=== PATIENT | female | born 1990 | race Caucasian/White ===

== ENCOUNTER 2017-02-15 06:10 | Outpatient (CLI) | payer OTHER | END 2017-02-15 06:11 | disposition critical access hospital (66) | LOC: EMS 06:10 | PROVIDERS: ATTEND Surgery | DX: O99.89 Other specified diseases and conditions complicating pregnancy, childbirth and the puerperium (principal); R56.9 Unspecified convulsions; R11.2 Nausea with vomiting, unspecified; R53.83 Other fatigue; R51 Headache | CPT/HCPCS: A0425; A0429 ==

== ENCOUNTER 2017-02-15 06:50 | Inpatient (IN) | payer OTHER ==
[2017-02-15] MEDS: MAGNESIUM SULFATE 2 GRAM 50 ML IV SCH ×2 (06:50→06:54)
[2017-02-15] MEDS ORDERED: ONDANSETRON 4 MG/2 ML VIAL IVP PRN (07:08)
[2017-02-15] MEDS ORDERED: SODIUM CHLORIDE FLUSH 0.9% 10 ML SYRINGE IVP PRN ×2 (07:08→11:26)
[2017-02-15] MEDS ORDERED: MAGNESIUM SULFATE 2 GRAM 50 ML IV ONE ×2 (07:14→08:30)
[2017-02-15] MEDS ORDERED: LABETALOL 5 MG/1 ML 20 ML MDV ONE (07:21)
[2017-02-15 07:26] LABS: BASOPHILS % (AUTO) 0.3 %; HCT - HEMATOCRIT 43.1 % (37.0-47.0); HGB - HEMOGLOBIN 14.6 g/dL (12.0-16.0); LYMPHOCYTES % (AUTO) 4.2 %; MEAN CORPUSCULAR VOLUME 88.4 fL (81.0-99.0); MEAN PLATELET VOLUME 8.5 fL (7.9-10.8); MONOCYTES % (AUTO) 2.3 %; NEUTROPHILS % (AUTO) 93.2 %; RED BLOOD COUNT 4.87 10^6/uL (4.20-5.40); RED CELL DISTRIBUTION WIDTH 14.5 % (12.0-15.0)
[2017-02-15 07:36] LABS: URIC ACID 10.5 mg/dL (2.6-7.2)
[2017-02-15 07:51] LABS: BAND NEUTROPHILS % (MANUAL) 2 %; LYMPHOCYTES % (MANUAL) 4 %; NEUTROPHILS % (MANUAL) 91 %; NP AUTO DIFFERENTIAL? YES; NP MAN DIFFERENTIAL? NO; PLATELET ESTIMATE, MANUAL NORMAL (130-450,000) (NORMAL); PLATELET MORPHOLOGY 1+ LARGE PLATELETS (NORMAL); TOTAL CELLS COUNTED 100
[2017-02-15] MEDS ORDERED: LACTATED RINGERS 1,000 ML IV SCH (08:00)
[2017-02-15] MEDS: LABETALOL 5 MG/1 ML 20 ML MDV IVP PRN ×2 (08:16→08:50)
[2017-02-15] MEDS ORDERED: MAGNESIUM SULFATE 40 GM in LACTATED RINGERS 420 ML IV SCH (09:00)
[2017-02-15] MEDS ORDERED: ceFAZolin 3 GM in SODIUM CHLORIDE 0.9% 100ML 100 ML IV ONE (09:17)
[2017-02-15] MEDS ORDERED: CITRIC ACID/SODIUM CITRATE 15 ML UDC PO ONE (09:29)
[2017-02-15] MEDS ORDERED: SODIUM CHLORIDE 0.9% 1,000 ML IV ONE (09:36)
--- NOTE | 2017-02-15 09:47 | HISTORY & PHYSICAL EXAMINATION ---
DATE OF ADMISSION: 02/15/2017 DIAGNOSES 1. 36 week 4 day gestation. 2. Status post eclamptic seizure. HISTORY: The patient is a 26-year-old primigravida at 36 weeks 4 days gestation, who in the midst of her seizure awoke her early this morning (approximately 5:30, 6:00 a.m.). Mr. Ashby describes whole body shaking , her eyes were rolled back into her head and postictal confused mental state, but she did not lose consciousness or urine. She was brought to the hospital by [facility]. She reports a week of chronic frontal headaches without visual changes. She also reports 24 hours of nausea and is retching, nonbilious, nonbloody fluid. She has had swelling of the hands and feet for over 6 weeks. She has no pre- history of hypertension and her baseline blood pressure on 27 August was 123/81. Her last office visit blood pressure on 21 January was 123/83. Patient states she still has headache and persistent nausea. She cannot recall her last meal or fluid intake and is actively vomiting during the interview. She reports no right upper quadrant tenderness. She reports no neurologic disease or prior seizure. LMP is 14 May, yielding an EDC of 18 February. On 01/24 ultrasound was consistent with 11 weeks 6 days fixing EDC at . HISTORY: Essentially unremarkable. Reviewed [facility] records. The patient's labs: Blood type A positive. Antibody screen negative. Rubella immune. RPR nonreactive. HIV negative. Hepatitis B surface antigen negative. Urine culture negative. Varicella titer positive. Glucola screen normal 94. GBS status unknown. anomaly scan on October 23 is normal anatomy. PAST MEDICAL HISTORY: Essentially healthy. No hospitalizations or chronic disease. PAST SURGICAL HISTORY: None. FAMILY HISTORY: Hypertension, heart disease, breast cancer. SOCIAL HISTORY: , [employer] dependent; no drug, tobacco, or alcohol use. REVIEW OF SYSTEMS CONSTITUTIONAL: Negative. HEENT: Negative. LUNGS: Negative. CARDIAC: Negative. BREASTS: Negative. GASTROINTESTINAL: No right upper quadrant tenderness. No digestive disease issues, reference HPI. NEUROLOGIC: Negative. No migrainous headaches. No MS. No sensory motor disturbance. MUSCULOSKELETAL: Hand and lower extremity edema. SKIN: Negative. PSYCHOLOGIC: Some anxiety triggered by emotion from seizure, but fairly calm. PHYSICAL EXAMINATION GENERAL: Patient lying comfortably in bed in a darkened room. She is alert enough to respond, but slightly groggy. present and helps augment answers. VITAL SIGNS: Temperature 97.5, respiration 22, pulse 81, blood pressure 164/119 , oxygen saturation 100% on 5 liters flow. HEENT: No cephalic trauma. No nasal discharge. Detailed inspection of oral cavity finds no bite petty of the tongue. Moist membranes. No thyromegaly. Dentition in good repair. LUNGS: Clear to auscultation. CARDIAC: Regular. No murmur. No gallop. BREASTS: Deferred. ABDOMEN: Gravid. No hepatosplenomegaly. No right upper quadrant tenderness. UTERUS: Fetus in vertex presentation, 6-1/2 pound fetus estimated. heart tracing initially category 2 with fair variability. No decelerations. Occasional accelerations. Baseline 135. No contractions evident. EXTERNAL GENITALIA: No lesions. VAGINA: No blood or discharge. CERVIX: 1 cm, 60% effaced, -2 station. NEUROLOGIC: EOMI. Cranial nerves 2-12 grossly intact. Detailed body check, sensorium intact all 4 limbs, face; diffusely weak on hand squeeze and muscle challenges, probably secondary to loading dose magnesium. Reflexes 2+. One bead of clonus each foot. MUSCULOSKELETAL: Bruises on both knees and inner portion of thigh, probably seizure trauma. Marked edema, tibial edema in both legs extending up 6 cm, finger edema, and facial edema. SKIN: No breaks in skin evident. No rashes. LABS: White count 21, hemoglobin 14.6, platelets 266. Uric acid 10.5. AST 52. Urinalysis and creatine protein ratio pending. Urine toxicology screen pending. Magnesium loading dose level check pending. ASSESSMENT: The patient has had evident eclamptic seizure at home and has been taken to the hospital via [facility]. She is found to have the clinical stigmata of preeclampsia including significant hypertension. There is no prior history of neurologic disease to explain the siezure event. Currently patient is stabilized and now has finished loading dose with magnesium sulfate. No significant seizure injury found. Patient will require labetalol for blood pressure control and well being assurance through external monitoring. Thus far, the strip is normalized after initial category 2. The patient will require delivery in the near future. Cervix is not readily inducible with low Mcdaniel score. PLAN 1. Continue supportive care and magnesium sulfate drip at 2 grams an hour. 2. Insert Augustin. 3. Prepare for delivery. Discussed case with air quality engineer veterinary receptionist, Dr. Cain Sweeney. He feels comfortable in keeping the patient here for delivery. 4. Discussed clinical situation with patient and her . Talked about the relative advantages and disadvantages of modes of delivery -- Vaginal vs C Section. We discussed transfer option as well. They are taking matter of mode of delivery and transfer under consideration. Patient is an appropriate candidate for induction and delivery at [facility]. Discussed case w Dr Miller and cholo segovia w [facility] care. 08:9:00 JOB #: [id number] EXT JOB #:[id number] ANAID
[2017-02-15 09:55] LABS: BILIRUBIN,URINE NEGATIVE (NEGATIVE)
[2017-02-15 09:59] LABS: UA w/ MICROSCOPIC CHARGE YES
[2017-02-15 10:04] LABS: UR CULTURE IF IND INDICATED; WBC,URINE 0-3 /HPF (0-5)
[2017-02-15] MEDS ORDERED: LACTATED RINGERS 1,000 ML IV ONE (10:18)
[2017-02-15] MEDS ORDERED: OXYTOCIN/LACTATED RINGERS 250 ML IV ONE (11:26)
[2017-02-15] MEDS ORDERED: oxyCOD/ACETAMIN 5 MG/325 MG TABLET PO PRN (11:26)
[2017-02-15] MEDS ORDERED: ZOLPIDEM 5 MG TABLET PO PRN (11:26)
[2017-02-15] MEDS ORDERED: diphenhydrAMINE 25 MG CAPSULE PO PRN (11:26)
[2017-02-15] MEDS ORDERED: SODIUM CHLORIDE FLUSH 0.9% 10 ML SYRINGE IVP SCH (14:00)
--- NOTE | 2017-02-15 17:12 | PROVIDER PROGRESS NOTE ---
Subjective - General Admit Date: 02/15/17 Procedure Date: 02/15/17 Post Op Days: 0 Procedure Performed: C/S - Review of Systems Wound/Incisions: positive: Healing well, Dressing dry and intact Drain Type: Augustin Drain Output Description: Initial 20 or less no to 60cc per hr General: positive: Fatigue HEENT: positive: No symptoms, Other (Facial Edema) Pulmonary: positive: No symptoms Cardiovascular: positive: No symptoms Gastrointestinal: positive: No symptoms Objective - Patient Data Vital Signs: Vital Signs x48h Temp Pulse Resp BP Pulse Ox 02/15/17 16:00 98.4 F 84 15 118/76 96 02/15/17 15:00 80 14 119/73 92 02/15/17 14:00 98.1 F 74 14 111/79 95 02/15/17 12:56 98.2 F 95 15 105/67 96 02/15/17 12:26 80 15 112/70 98 02/15/17 11:56 97.9 F 68 15 108/64 98 02/15/17 11:44 96 02/15/17 11:32 96 02/15/17 11:25 97 02/15/17 11:20 97 02/15/17 11:15 96 02/15/17 11:10 99 02/15/17 11:06 100 Weight: Weight 02/13/17 02/14/17 02/15/17 23:59 23:59 23:59 Weight (kg) 102.512 kg Intake & Output: Intake and Output Totals x24h 02/13/17 02/14/17 02/15/17 23:59 23:59 23:59 Intake Total 375 Output Total 415 Balance -40 - Lab Results Lab Results: 02/15/17 07:07 Other Lab Results: Lab Results x24hrs 02/15/17 02/15/17 02/15/17 Range/Units 08:50 08:50 08:50 WBC (4.8-10.8) x10^3/uL RBC (4.20-5.40) 10^6/uL Hgb (12.0-16.0) g/dL Hct (37.0-47.0) % MCV (81.0-99.0) fL MCH (27.0-31.0) pg MCHC (32.0-36.0) g/dL RDW (12.0-15.0) % Plt Count (130-450) 10^3/uL MPV (7.9-10.8) fL Neut # Lymph # Stanton # Eos # Baso # Absolute Nucleated RBC Total Counted Band Neuts % (Manual) (0 - 10) % Metamyelocytes % ( - 0) % Neutrophils # (Manual) (1.5-6.6) 10^3/uL Lymphocytes # (Manual) (1.5-3.5) 10^3/uL Monocytes # (Manual) (0.0-1.0) 10^3/uL Nucleated RBCs Differential Comment Platelet Estimate (NORMAL) Platelet Morphology (NORMAL) RBC Morph Micro Appear (NORMAL) Fibrinogen (220-496) mg/dL Uric Acid (2.6-7.2) mg/dL Magnesium (1.7-2.8) mg/dL AST (10-42) IU/L Lactate Dehydrogenase (91-225) IU/L Urine Color YELLOW Urine Clarity HAZY (CLEAR) Urine pH 6.0 (5.0-7.5) PH Ur Specific [place] >=1.030 H (1.002-1.030) Urine Protein >=300 H (NEGATIVE) mg/dL Urine Glucose (UA) NEGATIVE (NEGATIVE) mg/dL Urine Ketones NEGATIVE (NEGATIVE) mg/dL Urine Occult Blood LARGE H (NEGATIVE) Urine Nitrite NEGATIVE (NEGATIVE) Urine Bilirubin NEGATIVE (NEGATIVE) Urine Urobilinogen 0.2 (NORMAL) (NORMAL) E.U./dL Ur Leukocyte Esterase NEGATIVE (NEGATIVE) Urine RBC 6-10 H (0-5) /HPF Urine WBC 0-3 (0-5) /HPF Ur Squamous Epith Cells RARE Squamous (<= Few) Amorphous Sediment Few /LPF Urine Bacteria Moderate H (None Seen) /HPF Urine Casts 0-2 Course Granular /LPF Ur Microscopic Review INDICATED Urine Culture Comments INDICATED Urine Creatinine 252.4 mg/dL Ur Total Protein Timed > 2100 mg/dL Protein/Creatinin Ratio 8.3 H (<=0.2) Urine Opiates Screen NEGATIVE (NEGATIVE) Ur Oxycodone Screen NEGATIVE (NEGATIVE) Urine Methadone Screen NEGATIVE (NEGATIVE) Ur Propoxyphene Screen NEGATIVE (NEGATIVE) Ur Barbiturates Screen NEGATIVE (NEGATIVE) Ur Tricyclics Screen NEGATIVE (NEGATIVE) Ur Phencyclidine Scrn NEGATIVE (NEGATIVE) Ur Amphetamine Screen NEGATIVE (NEGATIVE) U Methamphetamines Scrn NEGATIVE (NEGATIVE) U Benzodiazepines Scrn NEGATIVE (NEGATIVE) Urine Cocaine Screen NEGATIVE (NEGATIVE) U Cannabinoids Screen NEGATIVE (NEGATIVE) Blood Type Antibody Screen 02/15/17 02/15/17 02/15/17 Range/Units 07:07 07:07 07:07 WBC (4.8-10.8) x10^3/uL RBC (4.20-5.40) 10^6/uL Hgb (12.0-16.0) g/dL Hct (37.0-47.0) % MCV (81.0-99.0) fL MCH (27.0-31.0) pg MCHC (32.0-36.0) g/dL RDW (12.0-15.0) % Plt Count (130-450) 10^3/uL MPV (7.9-10.8) fL Neut # Lymph # Stanton # Eos # Baso # Absolute Nucleated RBC Total Counted Band Neuts % (Manual) (0 - 10) % Metamyelocytes % ( - 0) % Neutrophils # (Manual) (1.5-6.6) 10^3/uL Lymphocytes # (Manual) (1.5-3.5) 10^3/uL Monocytes # (Manual) (0.0-1.0) 10^3/uL Nucleated RBCs Differential Comment Platelet Estimate (NORMAL) Platelet Morphology (NORMAL) RBC Morph Micro Appear (NORMAL) Fibrinogen (220-496) mg/dL Uric Acid (2.6-7.2) mg/dL Magnesium 4.4 H (1.7-2.8) mg/dL AST (10-42) IU/L Lactate Dehydrogenase 328 H (91-225) IU/L Urine Color Urine Clarity (CLEAR) Urine pH (5.0-7.5) PH Ur Specific [place] (1.002-1.030) Urine Protein (NEGATIVE) mg/dL Urine Glucose (UA) (NEGATIVE) mg/dL Urine Ketones (NEGATIVE) mg/dL Urine Occult Blood (NEGATIVE) Urine Nitrite (NEGATIVE) Urine Bilirubin (NEGATIVE) Urine Urobilinogen (NORMAL) E.U./dL Ur Leukocyte Esterase (NEGATIVE) Urine RBC (0-5) /HPF Urine WBC (0-5) /HPF Ur Squamous Epith Cells (<= Few) Amorphous Sediment /LPF Urine Bacteria (None Seen) /HPF Urine Casts /LPF Ur Microscopic Review Urine Culture Comments Urine Creatinine mg/dL Ur Total Protein Timed mg/dL Protein/Creatinin Ratio (<=0.2) Urine Opiates Screen (NEGATIVE) Ur Oxycodone Screen (NEGATIVE) Urine Methadone Screen (NEGATIVE) Ur Propoxyphene Screen (NEGATIVE) Ur Barbiturates Screen (NEGATIVE) Ur Tricyclics Screen (NEGATIVE) Ur Phencyclidine Scrn (NEGATIVE) Ur Amphetamine Screen (NEGATIVE) U Methamphetamines Scrn (NEGATIVE) U Benzodiazepines Scrn (NEGATIVE) Urine Cocaine Screen (NEGATIVE) U Cannabinoids Screen (NEGATIVE) Blood Type A POSITIVE Antibody Screen NEGATIVE 02/15/17 02/15/17 02/15/17 Range/Units 07:07 07:07 07:07 WBC 21.0 H (4.8-10.8) x10^3/uL RBC 4.87 (4.20-5.40) 10^6/uL Hgb 14.6 (12.0-16.0) g/dL Hct 43.1 (37.0-47.0) % MCV 88.4 (81.0-99.0) fL MCH 30.0 (27.0-31.0) pg MCHC 34.0 (32.0-36.0) g/dL RDW 14.5 (12.0-15.0) % Plt Count 266 (130-450) 10^3/uL MPV 8.5 (7.9-10.8) fL Neut # Not Reportable Lymph # Not Reportable Stanton # Not Reportable Eos # Not Reportable Baso # Not Reportable Absolute Nucleated RBC Not Reportable Total Counted 100 Band Neuts % (Manual) 2 (0 - 10) % Metamyelocytes % 1 H ( - 0) % Neutrophils # (Manual) 19.5 H (1.5-6.6) 10^3/uL Lymphocytes # (Manual) 0.8 L (1.5-3.5) 10^3/uL Monocytes # (Manual) 0.4 (0.0-1.0) 10^3/uL Nucleated RBCs Not Reportable Differential Comment MANUAL DIFFERENTIAL Platelet Estimate NORMAL (130-450,000) (NORMAL) Platelet Morphology 1+ LARGE PLATELETS (NORMAL) RBC Morph Micro Appear NORMAL APPEARANCE (NORMAL) Fibrinogen 556 H (220-496) mg/dL Uric Acid 10.5 H (2.6-7.2) mg/dL Magnesium (1.7-2.8) mg/dL AST 52 H (10-42) IU/L Lactate Dehydrogenase (91-225) IU/L Urine Color Urine Clarity (CLEAR) Urine pH (5.0-7.5) PH Ur Specific [place] (1.002-1.030) Urine Protein (NEGATIVE) mg/dL Urine Glucose (UA) (NEGATIVE) mg/dL Urine Ketones (NEGATIVE) mg/dL Urine Occult Blood (NEGATIVE) Urine Nitrite (NEGATIVE) Urine Bilirubin (NEGATIVE) Urine Urobilinogen (NORMAL) E.U./dL Ur Leukocyte Esterase (NEGATIVE) Urine RBC (0-5) /HPF Urine WBC (0-5) /HPF Ur Squamous Epith Cells (<= Few) Amorphous Sediment /LPF Urine Bacteria (None Seen) /HPF Urine Casts /LPF Ur Microscopic Review Urine Culture Comments Urine Creatinine mg/dL Ur Total Protein Timed mg/dL Protein/Creatinin Ratio (<=0.2) Urine Opiates Screen (NEGATIVE) Ur Oxycodone Screen (NEGATIVE) Urine Methadone Screen (NEGATIVE) Ur Propoxyphene Screen (NEGATIVE) Ur Barbiturates Screen (NEGATIVE) Ur Tricyclics Screen (NEGATIVE) Ur Phencyclidine Scrn (NEGATIVE) Ur Amphetamine Screen (NEGATIVE) U Methamphetamines Scrn (NEGATIVE) U Benzodiazepines Scrn (NEGATIVE) Urine Cocaine Screen (NEGATIVE) U Cannabinoids Screen (NEGATIVE) Blood Type Antibody Screen - Current Medications Current Medications: Current Medications Generic Name Dose Route Start Last Admin Trade Name Barryq PRN Reason Stop Dose Admin Magnesium Sulfate 40 gm/ 500 mls @ 25 mls/hr 02/15/17 09:00 02/15/17 08:30 Lactated Ringer's IV 25 mls/hr .Q20H LARRY Administration 2 GM/HR Labetalol HCl 10 mg 02/15/17 07:08 02/15/17 08:50 Trandate Inj IVP 10 mg Q10M PRN Administration SBP >160 or DBP >110
[2017-02-15] MEDS: LACTATED RINGERS 1,000 ML IV SCH (18:34)
[2017-02-15 19:58] LABS: BASOPHILS % (AUTO) 0.7 %; HCT - HEMATOCRIT 41.7 % (37.0-47.0); HGB - HEMOGLOBIN 13.7 g/dL (12.0-16.0); LYMPHOCYTES % (AUTO) 6.3 %; MEAN CORPUSCULAR HEMOGLOBIN 29.9 pg (27.0-31.0); MEAN CORPUSCULAR HGB CONC 32.9 g/dL (32.0-36.0); MEAN CORPUSCULAR VOLUME 90.7 fL (81.0-99.0); MEAN PLATELET VOLUME 8.5 fL (7.9-10.8); MONOCYTES % (AUTO) 6.4 %; NEUTROPHILS % (AUTO) 86.6 %; RED BLOOD COUNT 4.59 10^6/uL (4.20-5.40); RED CELL DISTRIBUTION WIDTH 15.4 % (12.0-15.0); UNCORRECTED WHITE BLOOD COUNT 21.3 x10^3/uL; WHITE BLOOD COUNT 21.3 x10^3/uL (4.8-10.8)
[2017-02-15 20:15] LABS: ALBUMIN/GLOBULIN RATIO 0.7 (1.0-2.2); BILIRUBIN,TOTAL 0.7 mg/dL (0.2-1.0); CALCIUM 7.5 mg/dL (8.5-10.3); CREATININE 1.2 mg/dL (0.4-1.0); POTASSIUM 4.1 mmol/L (3.5-5.0); TOTAL PROTEIN 5.4 g/dL (6.7-8.2)
[2017-02-15 20:27] LABS: MAGNESIUM 6.8 mg/dL (1.7-2.8)
[2017-02-15 20:33] LABS: BAND NEUTROPHILS % (MANUAL) 3 %; LYMPHOCYTES % (MANUAL) 2 %; NEUTROPHILS % (MANUAL) 88 %; NP AUTO DIFFERENTIAL? YES; NP MAN DIFFERENTIAL? NO; PLATELET ESTIMATE, MANUAL NORMAL (130-450,000) (NORMAL)
[2017-02-15] MEDS: DOCUSATE SODIUM 100 MG CAPSULE PO SCH (23:52)
--- NOTE | 2017-02-16 04:43 | PROVIDER PROGRESS NOTE ---
Subjective - General Admit Date: 02/15/17 Procedure Date: 02/15/17 Post Op Days: 1 Procedure Performed: C/S - Review of Systems Wound/Incisions: positive: Healing well, Dressing dry and intact Drain Type: Augustin Drain Output Description: Initial 20 or less no to 60cc per hr General: positive: Fatigue HEENT: positive: No symptoms, Other (Facial Edema) Pulmonary: positive: No symptoms Cardiovascular: positive: No symptoms Gastrointestinal: positive: No symptoms Genitourinary: positive: No symptoms Musculoskeletal: positive: Other (edema) Skin: positive: No symptoms Psychiatric: positive: No symptoms Objective - Patient Data Vital Signs: Vital Signs x48h Pulse Resp BP Pulse Ox 02/16/17 04:00 83 18 124/85 H 95 02/16/17 03:00 81 18 127/84 H 96 02/16/17 02:00 80 20 123/83 H 95 02/16/17 01:43 81 18 124/78 96 02/16/17 01:06 82 20 123/88 H 96 02/15/17 23:00 81 20 124/82 H 96 02/15/17 22:00 100 18 124/84 H 96 02/15/17 21:22 83 20 128/89 H 96 Weight: Weight 02/14/17 02/15/17 02/16/17 23:59 23:59 23:59 Weight (kg) 102.512 kg Intake & Output: Intake and Output Totals x24h 02/14/17 02/15/17 02/16/17 23:59 23:59 23:59 Intake Total 728 125 Output Total 1073 328 Balance -345 -203 - Lab Results Lab Results: 02/15/17 19:50 02/15/17 19:50 Other Lab Results: Lab Results x24hrs 02/15/17 02/15/17 02/15/17 Range/Units 19:50 19:50 08:50 WBC 21.3 H (4.8-10.8) x10^3/uL RBC 4.59 (4.20-5.40) 10^6/uL Hgb 13.7 (12.0-16.0) g/dL Hct 41.7 (37.0-47.0) % MCV 90.7 (81.0-99.0) fL MCH 29.9 (27.0-31.0) pg MCHC 32.9 (32.0-36.0) g/dL RDW 15.4 H (12.0-15.0) % Plt Count 242 (130-450) 10^3/uL MPV 8.5 (7.9-10.8) fL Neut # Not Reportable Lymph # Not Reportable [place] # Not Reportable Eos # Not Reportable Baso # Not Reportable Absolute Nucleated RBC Not Reportable Total Counted Band Neuts % (Manual) 3 (0 - 10) % Metamyelocytes % ( - 0) % Neutrophils # (Manual) 19.4 H (1.5-6.6) 10^3/uL Lymphocytes # (Manual) 0.4 L (1.5-3.5) 10^3/uL Monocytes # (Manual) 1.5 H (0.0-1.0) 10^3/uL Nucleated RBCs Not Reportable Differential Comment Platelet Estimate NORMAL (130-450,000) (NORMAL) Platelet Morphology (NORMAL) RBC Morph Micro Appear NORMAL APPEARANCE (NORMAL) Fibrinogen (220-496) mg/dL Sodium 135 (135-145) mmol/L Potassium 4.1 (3.5-5.0) mmol/L Chloride 105 (101-111) mmol/L Carbon Dioxide 19 L (21-32) mmol/L Anion Gap 11.0 (6-13) BUN 22 H (6-20) mg/dL Creatinine 1.2 H (0.4-1.0) mg/dL Estimated GFR (MDRD) 55 L (>89) Glucose 125 H (70-100) mg/dL Uric Acid (2.6-7.2) mg/dL Calcium 7.5 L (8.5-10.3) mg/dL Magnesium 6.8 H* (1.7-2.8) mg/dL Total Bilirubin 0.7 (0.2-1.0) mg/dL AST 40 (10-42) IU/L ALT 27 (10-60) IU/L Alkaline Phosphatase 99 (42-121) IU/L Lactate Dehydrogenase (91-225) IU/L Total Protein 5.4 L (6.7-8.2) g/dL Albumin 2.3 L (3.2-5.5) g/dL Globulin 3.1 (2.1-4.2) g/dL Albumin/Globulin Ratio 0.7 L (1.0-2.2) Urine Color Urine Clarity (CLEAR) Urine pH (5.0-7.5) PH Ur Specific [place] (1.002-1.030) Urine Protein (NEGATIVE) mg/dL Urine Glucose (UA) (NEGATIVE) mg/dL Urine Ketones (NEGATIVE) mg/dL Urine Occult Blood (NEGATIVE) Urine Nitrite (NEGATIVE) Urine Bilirubin (NEGATIVE) Urine Urobilinogen (NORMAL) E.U./dL Ur Leukocyte Esterase (NEGATIVE) Urine RBC (0-5) /HPF Urine WBC (0-5) /HPF Ur Squamous Epith Cells (<= Few) Amorphous Sediment /LPF Urine Bacteria (None Seen) /HPF Urine Casts /LPF Ur Microscopic Review Urine Culture Comments Urine Creatinine 252.4 mg/dL Ur Total Protein Timed > 2100 mg/dL Protein/Creatinin Ratio 8.3 H (<=0.2) Urine Opiates Screen (NEGATIVE) Ur Oxycodone Screen (NEGATIVE) Urine Methadone Screen (NEGATIVE) Ur Propoxyphene Screen (NEGATIVE) Ur Barbiturates Screen (NEGATIVE) Ur Tricyclics Screen (NEGATIVE) Ur Phencyclidine Scrn (NEGATIVE) Ur Amphetamine Screen (NEGATIVE) U Methamphetamines Scrn (NEGATIVE) U Benzodiazepines Scrn (NEGATIVE) Urine Cocaine Screen (NEGATIVE) U Cannabinoids Screen (NEGATIVE) Blood Type Antibody Screen 02/15/17 02/15/17 02/15/17 Range/Units 08:50 08:50 07:07 WBC (4.8-10.8) x10^3/uL RBC (4.20-5.40) 10^6/uL Hgb (12.0-16.0) g/dL Hct (37.0-47.0) % MCV (81.0-99.0) fL MCH (27.0-31.0) pg MCHC (32.0-36.0) g/dL RDW (12.0-15.0) % Plt Count (130-450) 10^3/uL MPV (7.9-10.8) fL Neut # Lymph # [place] # Eos # Baso # Absolute Nucleated RBC Total Counted Band Neuts % (Manual) (0 - 10) % Metamyelocytes % ( - 0) % Neutrophils # (Manual) (1.5-6.6) 10^3/uL Lymphocytes # (Manual) (1.5-3.5) 10^3/uL Monocytes # (Manual) (0.0-1.0) 10^3/uL Nucleated RBCs Differential Comment Platelet Estimate (NORMAL) Platelet Morphology (NORMAL) RBC Morph Micro Appear (NORMAL) Fibrinogen (220-496) mg/dL Sodium (135-145) mmol/L Potassium (3.5-5.0) mmol/L Chloride (101-111) mmol/L Carbon Dioxide (21-32) mmol/L Anion Gap (6-13) BUN (6-20) mg/dL Creatinine (0.4-1.0) mg/dL Estimated GFR (MDRD) (>89) Glucose (70-100) mg/dL Uric Acid (2.6-7.2) mg/dL Calcium (8.5-10.3) mg/dL Magnesium (1.7-2.8) mg/dL Total Bilirubin (0.2-1.0) mg/dL AST (10-42) IU/L ALT (10-60) IU/L Alkaline Phosphatase (42-121) IU/L Lactate Dehydrogenase (91-225) IU/L Total Protein (6.7-8.2) g/dL Albumin (3.2-5.5) g/dL Globulin (2.1-4.2) g/dL Albumin/Globulin Ratio (1.0-2.2) Urine Color YELLOW Urine Clarity HAZY (CLEAR) Urine pH 6.0 (5.0-7.5) PH Ur Specific [place] >=1.030 H (1.002-1.030) Urine Protein >=300 H (NEGATIVE) mg/dL Urine Glucose (UA) NEGATIVE (NEGATIVE) mg/dL Urine Ketones NEGATIVE (NEGATIVE) mg/dL Urine Occult Blood LARGE H (NEGATIVE) Urine Nitrite NEGATIVE (NEGATIVE) Urine Bilirubin NEGATIVE (NEGATIVE) Urine Urobilinogen 0.2 (NORMAL) (NORMAL) E.U./dL Ur Leukocyte Esterase NEGATIVE (NEGATIVE) Urine RBC 6-10 H (0-5) /HPF Urine WBC 0-3 (0-5) /HPF Ur Squamous Epith Cells RARE Squamous (<= Few) Amorphous Sediment Few /LPF Urine Bacteria Moderate H (None Seen) /HPF Urine Casts 0-2 Course Granular /LPF Ur Microscopic Review INDICATED Urine Culture Comments INDICATED Urine Creatinine mg/dL Ur Total Protein Timed mg/dL Protein/Creatinin Ratio (<=0.2) Urine Opiates Screen NEGATIVE (NEGATIVE) Ur Oxycodone Screen NEGATIVE (NEGATIVE) Urine Methadone Screen NEGATIVE (NEGATIVE) Ur Propoxyphene Screen NEGATIVE (NEGATIVE) Ur Barbiturates Screen NEGATIVE (NEGATIVE) Ur Tricyclics Screen NEGATIVE (NEGATIVE) Ur Phencyclidine Scrn NEGATIVE (NEGATIVE) Ur Amphetamine Screen NEGATIVE (NEGATIVE) U Methamphetamines Scrn NEGATIVE (NEGATIVE) U Benzodiazepines Scrn NEGATIVE (NEGATIVE) Urine Cocaine Screen NEGATIVE (NEGATIVE) U Cannabinoids Screen NEGATIVE (NEGATIVE) Blood Type A POSITIVE Antibody Screen NEGATIVE 02/15/17 02/15/17 02/15/17 Range/Units 07:07 07:07 07:07 WBC (4.8-10.8) x10^3/uL RBC (4.20-5.40) 10^6/uL Hgb (12.0-16.0) g/dL Hct (37.0-47.0) % MCV (81.0-99.0) fL MCH (27.0-31.0) pg MCHC (32.0-36.0) g/dL RDW (12.0-15.0) % Plt Count (130-450) 10^3/uL MPV (7.9-10.8) fL Neut # Lymph # [place] # Eos # Baso # Absolute Nucleated RBC Total Counted Band Neuts % (Manual) (0 - 10) % Metamyelocytes % ( - 0) % Neutrophils # (Manual) (1.5-6.6) 10^3/uL Lymphocytes # (Manual) (1.5-3.5) 10^3/uL Monocytes # (Manual) (0.0-1.0) 10^3/uL Nucleated RBCs Differential Comment Platelet Estimate (NORMAL) Platelet Morphology (NORMAL) RBC Morph Micro Appear (NORMAL) Fibrinogen (220-496) mg/dL Sodium (135-145) mmol/L Potassium (3.5-5.0) mmol/L Chloride (101-111) mmol/L Carbon Dioxide (21-32) mmol/L Anion Gap (6-13) BUN (6-20) mg/dL Creatinine (0.4-1.0) mg/dL Estimated GFR (MDRD) (>89) Glucose (70-100) mg/dL Uric Acid 10.5 H (2.6-7.2) mg/dL Calcium (8.5-10.3) mg/dL Magnesium 4.4 H (1.7-2.8) mg/dL Total Bilirubin (0.2-1.0) mg/dL AST 52 H (10-42) IU/L ALT (10-60) IU/L Alkaline Phosphatase (42-121) IU/L Lactate Dehydrogenase 328 H (91-225) IU/L Total Protein (6.7-8.2) g/dL Albumin (3.2-5.5) g/dL Globulin (2.1-4.2) g/dL Albumin/Globulin Ratio (1.0-2.2) Urine Color Urine Clarity (CLEAR) Urine pH (5.0-7.5) PH Ur Specific [place] (1.002-1.030) Urine Protein (NEGATIVE) mg/dL Urine Glucose (UA) (NEGATIVE) mg/dL Urine Ketones (NEGATIVE) mg/dL Urine Occult Blood (NEGATIVE) Urine Nitrite (NEGATIVE) Urine Bilirubin (NEGATIVE) Urine Urobilinogen (NORMAL) E.U./dL Ur Leukocyte Esterase (NEGATIVE) Urine RBC (0-5) /HPF Urine WBC (0-5) /HPF Ur Squamous Epith Cells (<= Few) Amorphous Sediment /LPF Urine Bacteria (None Seen) /HPF Urine Casts /LPF Ur Microscopic Review Urine Culture Comments Urine Creatinine mg/dL Ur Total Protein Timed mg/dL Protein/Creatinin Ratio (<=0.2) Urine Opiates Screen (NEGATIVE) Ur Oxycodone Screen (NEGATIVE) Urine Methadone Screen (NEGATIVE) Ur Propoxyphene Screen (NEGATIVE) Ur Barbiturates Screen (NEGATIVE) Ur Tricyclics Screen (NEGATIVE) Ur Phencyclidine Scrn (NEGATIVE) Ur Amphetamine Screen (NEGATIVE) U Methamphetamines Scrn (NEGATIVE) U Benzodiazepines Scrn (NEGATIVE) Urine Cocaine Screen (NEGATIVE) U Cannabinoids Screen (NEGATIVE) Blood Type Antibody Screen 02/15/17 02/15/17 Range/Units 07:07 07:07 WBC 21.0 H (4.8-10.8) x10^3/uL RBC 4.87 (4.20-5.40) 10^6/uL Hgb 14.6 (12.0-16.0) g/dL Hct 43.1 (37.0-47.0) % MCV 88.4 (81.0-99.0) fL MCH 30.0 (27.0-31.0) pg MCHC 34.0 (32.0-36.0) g/dL RDW 14.5 (12.0-15.0) % Plt Count 266 (130-450) 10^3/uL MPV 8.5 (7.9-10.8) fL Neut # Not Reportable Lymph # Not Reportable [place] # Not Reportable Eos # Not Reportable Baso # Not Reportable Absolute Nucleated RBC Not Reportable Total Counted 100 Band Neuts % (Manual) 2 (0 - 10) % Metamyelocytes % 1 H ( - 0) % Neutrophils # (Manual) 19.5 H (1.5-6.6) 10^3/uL Lymphocytes # (Manual) 0.8 L (1.5-3.5) 10^3/uL Monocytes # (Manual) 0.4 (0.0-1.0) 10^3/uL Nucleated RBCs Not Reportable Differential Comment MANUAL DIFFERENTIAL Platelet Estimate NORMAL (130-450,000) (NORMAL) Platelet Morphology 1+ LARGE PLATELETS (NORMAL) RBC Morph Micro Appear NORMAL APPEARANCE (NORMAL) Fibrinogen 556 H (220-496) mg/dL Sodium (135-145) mmol/L Potassium (3.5-5.0) mmol/L Chloride (101-111) mmol/L Carbon Dioxide (21-32) mmol/L Anion Gap (6-13) BUN (6-20) mg/dL Creatinine (0.4-1.0) mg/dL Estimated GFR (MDRD) (>89) Glucose (70-100) mg/dL Uric Acid (2.6-7.2) mg/dL Calcium (8.5-10.3) mg/dL Magnesium (1.7-2.8) mg/dL Total Bilirubin (0.2-1.0) mg/dL AST (10-42) IU/L ALT (10-60) IU/L Alkaline Phosphatase (42-121) IU/L Lactate Dehydrogenase (91-225) IU/L Total Protein (6.7-8.2) g/dL Albumin (3.2-5.5) g/dL Globulin (2.1-4.2) g/dL Albumin/Globulin Ratio (1.0-2.2) Urine Color Urine Clarity (CLEAR) Urine pH (5.0-7.5) PH Ur Specific [place] (1.002-1.030) Urine Protein (NEGATIVE) mg/dL Urine Glucose (UA) (NEGATIVE) mg/dL Urine Ketones (NEGATIVE) mg/dL Urine Occult Blood (NEGATIVE) Urine Nitrite (NEGATIVE) Urine Bilirubin (NEGATIVE) Urine Urobilinogen (NORMAL) E.U./dL Ur Leukocyte Esterase (NEGATIVE) Urine RBC (0-5) /HPF Urine WBC (0-5) /HPF Ur Squamous Epith Cells (<= Few) Amorphous Sediment /LPF Urine Bacteria (None Seen) /HPF Urine Casts /LPF Ur Microscopic Review Urine Culture Comments Urine Creatinine mg/dL Ur Total Protein Timed mg/dL Protein/Creatinin Ratio (<=0.2) Urine Opiates Screen (NEGATIVE) Ur Oxycodone Screen (NEGATIVE) Urine Methadone Screen (NEGATIVE) Ur Propoxyphene Screen (NEGATIVE) Ur Barbiturates Screen (NEGATIVE) Ur Tricyclics Screen (NEGATIVE) Ur Phencyclidine Scrn (NEGATIVE) Ur Amphetamine Screen (NEGATIVE) U Methamphetamines Scrn (NEGATIVE) U Benzodiazepines Scrn (NEGATIVE) Urine Cocaine Screen (NEGATIVE) U Cannabinoids Screen (NEGATIVE) Blood Type Antibody Screen - Current Medications Current Medications: Current Medications Generic Name Dose Route Start Last Admin Trade Name Freq PRN Reason Stop Dose Admin Docusate Sodium 100 mg 02/15/17 21:00 02/15/17 23:52 Colace 100mg Capsule PO Not Given BID LARRY Magnesium Sulfate 40 gm/ 500 mls @ 25 mls/hr 02/15/17 09:00 02/15/17 08:30 Lactated Ringer's IV 25 mls/hr .Q20H LARRY Administration 2 GM/HR Lactated Ringer's 1,000 mls @ 100 mls/hr 02/15/17 12:00 02/15/17 18:34 Lr IV Not Given .Q10H LARRY Labetalol HCl 10 mg 02/15/17 07:08 02/15/17 08:50 Trandate Inj IVP 10 mg Q10M PRN Administration SBP >160 or DBP >110 Exam - Exam Vital Signs: Vital Signs (72 hours) 08/11/2702/15/17 02/15/17 06:50 11:06 11:10 Temperature 97.5 F L Heart Rate [ 81 Monitoring electrodes] Respiratory 22 Rate Blood Pressure 164/119 H [Right Brachial artery] O2 Saturation 100 100 99 02/15/17 02/15/17 02/15/17 11:15 11:20 11:25 Temperature Heart Rate [ Monitoring electrodes] Respiratory Rate Blood Pressure [Right Brachial artery] O2 Saturation 96 97 97 02/15/17 02/15/17 02/15/17 11:32 11:44 11:56 Temperature 97.9 F Heart Rate [ 68 Monitoring electrodes] Respiratory 15 Rate Blood Pressure 108/64 [Right Brachial artery] O2 Saturation 96 96 98 02/15/17 02/15/17 02/15/17 12:26 12:56 14:00 Temperature 98.2 F 98.1 F Heart Rate [ 80 95 74 Monitoring electrodes] Respiratory 15 15 14 Rate Blood Pressure 112/70 105/67 111/79 [Right Brachial artery] O2 Saturation 98 96 95 02/15/17 02/15/17 02/15/17 15:00 16:00 17:10 Temperature 98.4 F 97.5 F L Heart Rate [ 80 84 82 Monitoring electrodes] Respiratory 14 15 14 Rate Blood Pressure 119/73 118/76 122/81 H [Right Brachial artery] O2 Saturation 92 96 96 02/15/17 02/15/17 02/15/17 18:20 19:41 19:45 Temperature 98.4 F 97.7 F Heart Rate [ 88 89 Monitoring electrodes] Respiratory 15 18 Rate Blood Pressure 131/88 H 127/88 H 119/94 H [Right Brachial artery] O2 Saturation 97 96 02/15/17 02/15/17 02/15/17 20:00 20:15 21:22 Temperature Heart Rate [ 86 83 Monitoring electrodes] Respiratory 18 20 Rate Blood Pressure 131/91 H 134/96 H 128/89 H [Right Brachial artery] O2 Saturation 97 96 02/15/17 02/15/17 02/16/17 22:00 23:00 01:06 Temperature Heart Rate [ 100 81 82 Monitoring electrodes] Respiratory 18 20 20 Rate Blood Pressure 124/84 H 124/82 H 123/88 H [Right Brachial artery] O2 Saturation 96 96 96 02/16/17 02/16/17 02/16/17 01:43 02:00 03:00 Temperature Heart Rate [ 81 80 81 Monitoring electrodes] Respiratory 18 20 18 Rate Blood Pressure 124/78 123/83 H 127/84 H [Right Brachial artery] O2 Saturation 96 95 96 02/16/17 04:00 Temperature Heart Rate [ 83 Monitoring electrodes] Respiratory 18 Rate Blood Pressure 124/85 H [Right Brachial artery] O2 Saturation 95 General: Oriented x3, No acute distress HEENT: EOMI, Mucous membr. 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 She has started diuresis and BP normalizing. Last Mag 6.2 and therapeutic. DC mag at 0700. Continue supportive care. Plan: DC Mag at 24 H
[2017-02-16 06:49] LABS: BASOPHILS % (AUTO) 0.3 %; EOSINOPHILS % (AUTO) 0.1 %; HCT - HEMATOCRIT 38.4 % (37.0-47.0); HGB - HEMOGLOBIN 12.8 g/dL (12.0-16.0); LYMPHOCYTES # (AUTO) 1.4 10^3/uL (1.5-3.5); LYMPHOCYTES % (AUTO) 8.6 %; MEAN CORPUSCULAR HEMOGLOBIN 30.2 pg (27.0-31.0); MEAN CORPUSCULAR HGB CONC 33.5 g/dL (32.0-36.0); MEAN CORPUSCULAR VOLUME 90.2 fL (81.0-99.0); MEAN PLATELET VOLUME 8.6 fL (7.9-10.8); MONOCYTES # (AUTO) 1.2 10^3/uL (0.0-1.0); MONOCYTES % (AUTO) 7.5 %; NEUTROPHILS # (AUTO) 13.7 10^3/uL (1.5-6.6); NEUTROPHILS % (AUTO) 83.5 %; RED BLOOD COUNT 4.25 10^6/uL (4.20-5.40); RED CELL DISTRIBUTION WIDTH 15.5 % (12.0-15.0); UNCORRECTED WHITE BLOOD COUNT 16.4 x10^3/uL; WHITE BLOOD COUNT 16.4 x10^3/uL (4.8-10.8)
[2017-02-16] MEDS: SODIUM CHLORIDE FLUSH 0.9% 10 ML SYRINGE IVP SCH ×2 (07:00→18:57)
[2017-02-16] MEDS: DOCUSATE SODIUM 100 MG CAPSULE PO SCH ×2 (09:10→20:32)
[2017-02-16] MEDS ORDERED: LABETALOL 100 MG TABLET PO SCH (12:00)
[2017-02-16] MEDS: IBUPROFEN 600 MG TABLET PO SCH ×2 (12:34→18:54)
[2017-02-16] MEDS: LABETALOL 100 MG TABLET PO SCH ×2 (12:34→20:31)
[2017-02-16] MEDS: oxyCOD/ACETAMIN 5 MG/325 MG TABLET PO PRN ×3 (12:35→20:31)
[2017-02-17] MEDS: IBUPROFEN 600 MG TABLET PO SCH ×4 (00:47→19:58)
[2017-02-17] MEDS: oxyCOD/ACETAMIN 5 MG/325 MG TABLET PO PRN ×5 (00:47→23:35)
[2017-02-17] MEDS: SODIUM CHLORIDE FLUSH 0.9% 10 ML SYRINGE IVP SCH ×2 (05:00→14:15)
--- NOTE | 2017-02-17 05:16 | PROVIDER PROGRESS NOTE ---
Subjective - General Admit Date: 02/15/17 Procedure Date: 02/15/17 Post Op Days: 2 Procedure Performed: C/S - Review of Systems Wound/Incisions: positive: Healing well, Dressing dry and intact Drain Type: Augustin Drain Output Description: Initial 20 or less no to 60cc per hr General: positive: No symptoms, Fatigue HEENT: positive: No symptoms, Other (Facial Edema Decreased; Blurred Vision) Pulmonary: positive: No symptoms Cardiovascular: positive: No symptoms Gastrointestinal: positive: No symptoms Genitourinary: positive: No symptoms Musculoskeletal: positive: Other (edema) Skin: positive: No symptoms Psychiatric: positive: No symptoms Objective - Patient Data Vital Signs: Vital Signs x48h Temp Pulse Resp BP Pulse Ox 02/17/17 05:09 98.6 F 78 16 143/91 H 97 02/17/17 01:00 98.4 F 68 18 130/83 H 96 02/16/17 22:30 78 20 124/72 Weight: Weight 02/15/17 02/16/17 02/17/17 23:59 23:59 23:59 Weight (kg) 102.512 kg Intake & Output: Intake and Output Totals x24h 02/15/17 02/16/17 02/17/17 23:59 23:59 23:59 Intake Total 728 600 Output Total 1073 2098 Balance -345 -1498 - Lab Results Lab Results: 02/16/17 06:19 02/15/17 19:50 Other Lab Results: Lab Results x24hrs 02/16/17 Range/Units 06:19 WBC 16.4 H (4.8-10.8) x10^3/uL RBC 4.25 (4.20-5.40) 10^6/uL Hgb 12.8 (12.0-16.0) g/dL Hct 38.4 (37.0-47.0) % MCV 90.2 (81.0-99.0) fL MCH 30.2 (27.0-31.0) pg MCHC 33.5 (32.0-36.0) g/dL RDW 15.5 H (12.0-15.0) % Plt Count 213 (130-450) 10^3/uL MPV 8.6 (7.9-10.8) fL Neut # 13.7 H (1.5-6.6) 10^3/uL Lymph # 1.4 L (1.5-3.5) 10^3/uL [place] # 1.2 H (0.0-1.0) 10^3/uL Eos # 0.0 (0.0-0.7) 10^3/uL Baso # 0.0 (0.0-0.1) 10^3/uL Absolute Nucleated RBC 0.00 x10^3/uL Nucleated RBCs 0.0 /100WBC - Current Medications Current Medications: Current Medications Generic Name Dose Route Start Last Admin Trade Name Freq PRN Reason Stop Dose Admin Docusate Sodium 100 mg 02/15/17 21:00 02/16/17 20:32 Colace 100mg Capsule PO 100 mg BID LARRY Administration Lactated Ringer's 1,000 mls @ 100 mls/hr 02/15/17 12:00 02/15/17 18:34 Lr IV Not Given .Q10H LARRY Ibuprofen 600 mg 02/16/17 12:00 02/17/17 00:47 Motrin PO 600 mg Q6HR LARRY Administration Labetalol HCl 10 mg 02/15/17 07:08 02/15/17 08:50 Trandate Inj IVP 10 mg Q10M PRN Administration SBP >160 or DBP >110 Labetalol HCl 200 mg 02/16/17 13:00 02/16/17 20:31 Trandate PO 200 mg BID LARRY Administration Oxycodone/Acetaminophen 1 - 2 tab 02/16/17 12:02 02/17/17 04:57 Percocet 5 Mg/325 Mg PO 2 tab Q4HR PRN Administration PAIN Sodium Chloride 10 ml 02/15/17 14:00 02/17/17 05:00 Normal Saline Flush 0.9% IVP 10 ml Q8HR LARRY Administration Exam - Exam Vital Signs: Vital Signs (72 hours) 02/15/17 02/15/17 02/15/17 06:50 11:06 11:10 Temperature 97.5 F L Heart Rate [ 81 Monitoring electrodes] Respiratory 22 Rate Blood Pressure 164/119 H [Right Brachial artery] O2 Saturation 100 100 99 02/15/17 02/15/17 02/15/17 11:15 11:20 11:25 Temperature Heart Rate [ Monitoring electrodes] Respiratory Rate Blood Pressure [Right Brachial artery] O2 Saturation 96 97 97 02/15/17 02/15/17 02/15/17 11:32 11:44 11:56 Temperature 97.9 F Heart Rate [ 68 Monitoring electrodes] Respiratory 15 Rate Blood Pressure 108/64 [Right Brachial artery] O2 Saturation 96 96 98 02/15/17 02/15/17 02/15/17 12:26 12:56 14:00 Temperature 98.2 F 98.1 F Heart Rate [ 80 95 74 Monitoring electrodes] Respiratory 15 15 14 Rate Blood Pressure 112/70 105/67 111/79 [Right Brachial artery] O2 Saturation 98 96 95 02/15/17 02/15/17 02/15/17 15:00 16:00 17:10 Temperature 98.4 F 97.5 F L Heart Rate [ 80 84 82 Monitoring electrodes] Respiratory 14 15 14 Rate Blood Pressure 119/73 118/76 122/81 H [Right Brachial artery] O2 Saturation 92 96 96 02/15/17 02/15/17 02/15/17 18:20 19:41 19:45 Temperature 98.4 F 97.7 F Heart Rate [ 88 89 Monitoring electrodes] Respiratory 15 18 Rate Blood Pressure 131/88 H 127/88 H 119/94 H [Right Brachial artery] O2 Saturation 97 96 02/15/17 02/15/17 02/15/17 20:00 20:15 21:22 Temperature Heart Rate [ 86 83 Monitoring electrodes] Respiratory 18 20 Rate Blood Pressure 131/91 H 134/96 H 128/89 H [Right Brachial artery] O2 Saturation 97 96 02/15/17 02/15/17 02/16/17 22:00 23:00 01:06 Temperature Heart Rate [ 100 81 82 Monitoring electrodes] Respiratory 18 20 20 Rate Blood Pressure 124/84 H 124/82 H 123/88 H [Right Brachial artery] O2 Saturation 96 96 96 02/16/17 02/16/17 02/16/17 01:43 02:00 03:00 Temperature Heart Rate [ 81 80 81 Monitoring electrodes] Respiratory 18 20 18 Rate Blood Pressure 124/78 123/83 H 127/84 H [Right Brachial artery] O2 Saturation 96 95 96 02/16/17 02/16/17 02/16/17 04:00 05:00 06:00 Temperature Heart Rate [ 83 78 81 Monitoring electrodes] Respiratory 18 20 20 Rate Blood Pressure 124/85 H 125/85 H 129/94 H [Right Brachial artery] O2 Saturation 95 95 97 02/16/17 02/16/17 02/16/17 07:00 08:10 11:10 Temperature 98.4 F 98.4 F Heart Rate [ 80 80 92 Monitoring electrodes] Respiratory 16 15 16 Rate Blood Pressure 126/94 H 142/96 H 150/100 H [Right Brachial artery] O2 Saturation 95 96 99 02/16/17 02/16/17 02/16/17 16:25 20:15 22:30 Temperature 98.4 F 98.1 F Heart Rate [ 79 80 78 Monitoring electrodes] Respiratory 15 18 20 Rate Blood Pressure 129/82 H 142/95 H 124/72 [Right Brachial artery] O2 Saturation 99 96 02/17/17 02/17/17 01:00 05:09 Temperature 98.4 F 98.6 F Heart Rate [ 68 78 Monitoring electrodes] Respiratory 18 16 Rate Blood Pressure 130/83 H 143/91 H [Right Brachial artery] O2 Saturation 96 97 General: Alert, Oriented x3, No acute distress HEENT: Mucous membr. moist/pink Lungs: Clear to auscultation Cardiovascular: Regular rate, Normal S1, Normal S2, No murmurs Abdomen: Normal bowel sounds, Soft, No tenderness, No hepatospenomegaly, Other ( Uterus firm 17 w size; Mild nonfoul lochia; Wound vac in place) Extremities: Other (Mild pedal edema) Skin: No rashes Neurological: Normal speech, Strength at 5/5 X4 ext, Normal tone, Sensation intact, Cranial nerves 3-12 NL, Reflexes 2+ Psych/Mental Status: Mental status NL Assessment/Plan - Assessment/Plan Assessment: Pt recovering well from C Section and SZ. BP held w oral labetatol 200 bid. Nursing well Plan: Continue present management
[2017-02-17] MEDS: LABETALOL 100 MG TABLET PO SCH ×2 (07:49→19:59)
[2017-02-17] MEDS: DOCUSATE SODIUM 100 MG CAPSULE PO SCH ×2 (07:50→19:58)
--- NOTE | 2017-02-17 07:55 | OPERATIVE REPORT ---
DATE OF SURGERY: 02/15/2017 00:00:00 PREOPERATIVE DIAGNOSIS: 1. Status post preeclampsia, eclamptic seizure. 2. Severe preeclampsia. 3. 36 week 4 day gestation. 4. Remote from delivery with unfavorable Mcdaniel score. 5. Hypertension requiring multiple doses of labetalol, difficult to control hypertension. 6. Oliguria. 7. Morbid obesity (BMI 40.7). POSTOPERATIVE DIAGNOSIS: 1. Status post preeclampsia, eclamptic seizure. 2. Severe preeclampsia. 3. 36 week 4 day gestation. 4. Remote from delivery with unfavorable Mcdaniel score. 5. Hypertension requiring multiple doses of labetalol, difficult to control hypertension. 6. Bicornuate uterus. 7. Living female infant. NAME OF PROCEDURE: Primary lower segment transverse section. SURGEON: Aman Treviño MD, FACOG REGULATORY AFFAIRS COORDINATOR: YOVANA Cervantes, ANOOP ANESTHESIA: Fritz Wheeler CNA, spinal. COMPLICATIONS: None. ESTIMATED BLOOD LOSS: 200 mL DRAINS: Augustin to gravity, low urine output, less than 30 mL over the last 2 hours. KITCHEN HELPER: Marcio Sweeney MD, Pediatrics FINDINGS: Immediately prior to surgery, the patient had several doses of IV push labetalol that had a slow effect at bringing her blood pressure down from roughly 160/115 to 150s over 100 to 105. heart tracing remained category 1 given the mag effect. Her urine output was beginning to decrease with 10cc noted in the bag and very concentrate. INCISION TIME: 1005 At 1008 a living female was born weighing 2494 grams and scoring Apgars of 1//9. Mag effect was evident and with time it reversed itself. Cord gases were taken to document well-being. There was no obvious congenital defects or trauma. Reference Dr. Sweeney's notes. Both tubes were open and fluffy with some system Morgagni present. The ovaries were normal with decidual reaction. The uterus was classic bicornuate with a 2.5 cm septum and a heart shaped configuration. Placenta was delivered intact and grade III. Cord configuration was 3 vessel without any entanglement. TECHNIQUE: Immediately prior to surgery the patient's clinical situation worsened in that her blood pressure became more difficult to control even with labetalol. Her urine output was falling to oliguria. Given that her cervix was only dilated 1 cm and fairly thick with nonengagement and no palpable contractions, vaginal delivery seemed remote. Discussions on mode of delivery were revisited and the patient chose section to expedite delivery and potentially avoid preeclamptic complications. 3 grams of Ancef were given. SCD boots placed and Augustin already was in place. We were waiting on mag level which was 4.4 slightly below therapeutic target range of 4.8. Immediately prior to surgery 10 mg hydralazine IVP was given in addition to the multiple doses of labetalol to reduce the blood pressure. The patient was brought to the operating room table and placed in the sitting position. Spinal anesthetic was uneventfully placed and she was moved to the supine. She was prepped and draped in the customary sterile fashion. Time-out briefing was done per protocol. Anesthetic was confirmed good through level T10 and the procedure begun. Abdominal wall was uneventfully opened with a Pfannenstiel incision. The fetus was palpated through the uterus and position ascertained. A transverse hysterotomy was cut with scalpel. On entry into the amniotic cavity there was clear nonfoul fluid. Wound was expanded with gentle finger traction. Circus [place] secured the vertex with his right hand and guided it through the hysterotomy and laparotomy wounds. Due to maternal obesity there was some soft tissue dystocia and kiwi was placed on the vertex and pumped to the green zone. After application of fundal pressure, the head was guided through the hysterotomy and laparotomy. The oral and nasal pharynx were thoroughly suctioned. Anterior shoulder was then swept and delivered. Posterior shoulder followed uneventfully. The was then completely delivered. Cord was doubly clamped and transected. was handed to the awaiting steel plate caulker. Cord blood and cord gas samples were sent. The uterus was exteriorized. It was evident that it was bicornuate configuration. Photographs were taken. With gentle fundal massage the placenta was delivered intact. It was then sent to pathology due to grade III. Hysterotomy was closed in 2 parts with running suture in 2 layers with 2-0 Vicryl. First was a running interlocked layer followed by an imbricating layer using a cardinal stitch. Bladder flap was resealed with 3-0 Vicryl. Abdominal cavity was doubly lavaged and inspected. Uterus was placed back in its normal position. Peritoneum was closed with a running stitch of 2-0 Vicryl. Rectus muscles were reapproximated with interrupted stitches of 2-0 Vicryl. The fascia was closed with running stitch of #1 Vicryl. The subcutaneous adipose tissue was closed with interrupted stitches of 2-0 chromic. Skin was closed with a loose running subcuticular stitch of 4-0 Monocryl. Compression bandage was placed. At the end of the procedure all sponge, needle and instrument counts were confirmed as correct. Mother, father and all bonded well and seemed quite happy. Note that during a portion of the surgery the magnesium sulfate was discontinued. Pressures normalized to relatively low being 96/50. Further labetalol will probably be required. Note that the hydralazine. JOB #: [id number] [id number] JOB #:[id number] [email or web address]
[2017-02-17] MEDS: ACETAMINOPHEN 500 MG TABLET PO PRN ×2 (13:33→17:09)
[2017-02-17] MEDS: NITROFURANTOIN MACRO 100 MG CAPSULE PO SCH ×2 (14:15→23:35)
[2017-02-17] MEDS ORDERED: LABETALOL 20 MG/4 ML SYRINGE IVP SCH ×2 (22:05→23:50)
[2017-02-17] MEDS: LABETALOL 5 MG/1 ML 20 ML MDV IVP PRN ×2 (22:40→22:41)
[2017-02-17] MEDS ORDERED: LABETALOL 100 MG TABLET PO SCH (23:49)
[2017-02-18] MEDS: LABETALOL 5 MG/1 ML 20 ML MDV IVP PRN ×7 (00:02→03:14)
[2017-02-18] MEDS: hydrALAZINE INJ 20 MG/ML VIAL IVP ONE ×2 (01:47→05:02)
[2017-02-18] MEDS: IBUPROFEN 600 MG TABLET PO SCH (01:57)
[2017-02-18] MEDS ORDERED: LABETALOL 20 MG/4 ML SYRINGE IVP ONE (02:17)
[2017-02-18] MEDS ORDERED: MAGNESIUM SULFATE 2 GRAM 100 ML IV ONE (03:19)
[2017-02-18] MEDS: LACTATED RINGERS 1,000 ML IV SCH (03:29)
[2017-02-18] MEDS ORDERED: SODIUM CHLORIDE 0.9% 500 ML IV ONE (03:41)
[2017-02-18] MEDS ORDERED: MAGNESIUM SULFATE 40 GM in LACTATED RINGERS 420 ML IV SCH (03:55)
[2017-02-18 04:00] LABS: BASOPHILS # (AUTO) 0.1 10^3/uL (0.0-0.1); BASOPHILS % (AUTO) 0.7 %; EOSINOPHILS # (AUTO) 0.2 10^3/uL (0.0-0.7); EOSINOPHILS % (AUTO) 1.7 %; HCT - HEMATOCRIT 32.7 % (37.0-47.0); HGB - HEMOGLOBIN 11.2 g/dL (12.0-16.0); LYMPHOCYTES # (AUTO) 1.7 10^3/uL (1.5-3.5); LYMPHOCYTES % (AUTO) 15.6 %; MEAN CORPUSCULAR HEMOGLOBIN 30.6 pg (27.0-31.0); MEAN CORPUSCULAR HGB CONC 34.2 g/dL (32.0-36.0); MEAN CORPUSCULAR VOLUME 89.5 fL (81.0-99.0); MEAN PLATELET VOLUME 8.4 fL (7.9-10.8); MONOCYTES # (AUTO) 0.7 10^3/uL (0.0-1.0); MONOCYTES % (AUTO) 6.5 %; NEUTROPHILS # (AUTO) 8.4 10^3/uL (1.5-6.6); NEUTROPHILS % (AUTO) 75.5 %; RED BLOOD COUNT 3.65 10^6/uL (4.20-5.40); RED CELL DISTRIBUTION WIDTH 15.4 % (12.0-15.0); UNCORRECTED WHITE BLOOD COUNT 11.1 x10^3/uL; WHITE BLOOD COUNT 11.1 x10^3/uL (4.8-10.8)
[2017-02-18 04:09] LABS: BILIRUBIN,DIRECT 0.1 mg/dL (0.1-0.5); BILIRUBIN,TOTAL 0.5 mg/dL (0.2-1.0); TOTAL PROTEIN 5.3 g/dL (6.7-8.2); URIC ACID 8.8 mg/dL (2.6-7.2)
[2017-02-18 04:14] LABS: INR 0.9 (0.8-1.2); PT - PROTHROMBIN TIME 9.9 secs (9.9-12.6)
[2017-02-18 04:28] LABS: PARTIAL THROMBOPLASTIN TIME 23.9 secs (24.9-33.3)
[2017-02-18] MEDS: oxyCOD/ACETAMIN 5 MG/325 MG TABLET PO PRN (04:51)
[2017-02-18 04:55] LABS: CALCIUM 7.3 mg/dL (8.5-10.3); CREATININE 0.9 mg/dL (0.4-1.0); POTASSIUM 4.1 mmol/L (3.5-5.0)
[2017-02-18] MEDS ORDERED: hydrALAZINE INJ 20 MG/ML VIAL IVP ONE ×2 (05:02→05:39)
[2017-02-18] MEDS ORDERED: NIFEdipine ER 30 MG TABLET PO SCH (05:05)
[2017-02-18] MEDS ORDERED: NIFEdipine ER 30 MG TABLET PO ONE (05:08)
--- NOTE | 2017-02-18 05:22 | PROVIDER PROGRESS NOTE ---
Subjective - General Admit Date: 02/15/17 Procedure Date: 02/15/17 Post Op Days: 3 Procedure Performed: C/S - Review of Systems Wound/Incisions: positive: Healing well, Dressing dry and intact Drain Type: Augustin Drain Output Description: Initial 20 or less no to 60cc per hr General: positive: No symptoms, Fatigue HEENT: positive: No symptoms, Other (Facial Edema Decreased; Blurred Vision) Pulmonary: positive: No symptoms Cardiovascular: positive: No symptoms Gastrointestinal: positive: No symptoms, Nausea, Vomiting Genitourinary: positive: No symptoms Musculoskeletal: positive: Other (edema) Skin: positive: No symptoms Psychiatric: positive: No symptoms Objective - Patient Data Reviewed Vital Signs: Yes Vital Signs: Vital Signs x48h Temp Pulse Resp BP Pulse Ox 02/18/17 05:08 72 18 141/104 H 97 02/18/17 05:00 68 16 152/110 H 96 02/18/17 04:46 63 18 138/100 H 96 02/18/17 04:30 60 18 142/100 H 96 02/18/17 04:15 68 16 145/102 H 96 02/18/17 04:00 60 16 137/91 H 96 02/18/17 03:45 64 146/101 H 02/18/17 03:30 67 20 140/105 H 02/18/17 03:18 74 142/107 H 02/18/17 03:12 73 165/116 H 02/18/17 03:06 74 155/103 H 02/18/17 03:00 60 18 163/113 H 02/18/17 02:55 374.1 C H 70 20 157/105 H 02/18/17 02:45 80 165/111 H 02/18/17 02:31 65 154/102 H 02/18/17 02:23 67 160/107 H 02/18/17 02:15 59 L 142/103 H 02/18/17 01:59 66 152/112 H 02/18/17 01:52 63 149/103 H 02/18/17 01:45 62 155/107 H 02/18/17 01:30 61 153/110 H 02/18/17 01:16 63 155/111 H 02/18/17 01:11 62 148/101 H 02/18/17 01:00 64 158/111 H 02/18/17 00:45 61 151/106 H 02/18/17 00:36 64 153/106 H 02/18/17 00:30 58 L 164/113 H 02/18/17 00:15 58 L 166/110 H 02/18/17 00:00 58 L 159/105 H 02/17/17 23:45 56 L 160/113 H 02/17/17 23:40 65 174/108 H 02/17/17 23:17 74 171/111 H 02/17/17 23:02 157/111 H 02/17/17 22:49 156/108 H 02/17/17 22:48 153/107 H Intake & Output: Intake and Output Totals x24h 02/16/17 02/17/17 02/18/17 23:59 23:59 23:59 Intake Total 600 360 Output Total 2098 325 Balance -1498 35 - Lab Results Lab Results: 02/18/17 03:38 02/18/17 03:38 Other Lab Results: Lab Results x24hrs 02/18/17 02/18/17 02/18/17 Range/Units 04:10 03:38 03:38 WBC (4.8-10.8) x10^3/uL RBC (4.20-5.40) 10^6/uL Hgb (12.0-16.0) g/dL Hct (37.0-47.0) % MCV (81.0-99.0) fL MCH (27.0-31.0) pg MCHC (32.0-36.0) g/dL RDW (12.0-15.0) % Plt Count (130-450) 10^3/uL MPV (7.9-10.8) fL Neut # (1.5-6.6) 10^3/uL Lymph # (1.5-3.5) 10^3/uL Isabella # (0.0-1.0) 10^3/uL Eos # (0.0-0.7) 10^3/uL Baso # (0.0-0.1) 10^3/uL Absolute Nucleated RBC x10^3/uL Nucleated RBCs /100WBC PT (9.9-12.6) secs INR (0.8-1.2) APTT (24.9-33.3) secs Fibrinogen (220-496) mg/dL Sodium 135 (135-145) mmol/L Potassium 4.1 (3.5-5.0) mmol/L Chloride 106 (101-111) mmol/L Carbon Dioxide 22 (21-32) mmol/L Anion Gap 7.0 (6-13) BUN 22 H (6-20) mg/dL Creatinine 0.9 (0.4-1.0) mg/dL Estimated GFR (MDRD) 76 L (>89) Glucose 96 (70-100) mg/dL Uric Acid 8.8 H (2.6-7.2) mg/dL Calcium 7.3 L (8.5-10.3) mg/dL Total Bilirubin 0.5 (0.2-1.0) mg/dL Direct Bilirubin 0.1 (0.1-0.5) mg/dL AST 21 (10-42) IU/L ALT 16 (10-60) IU/L Alkaline Phosphatase 66 (42-121) IU/L Total Protein 5.3 L (6.7-8.2) g/dL Albumin 2.3 L (3.2-5.5) g/dL Globulin 3.0 (2.1-4.2) g/dL Urine Creatinine 94.7 mg/dL Ur Total Protein Timed 172 mg/dL Protein/Creatinin Ratio 1.8 H (<=0.2) 02/18/17 02/18/17 Range/Units 03:38 03:38 WBC 11.1 H (4.8-10.8) x10^3/uL RBC 3.65 L (4.20-5.40) 10^6/uL Hgb 11.2 L (12.0-16.0) g/dL Hct 32.7 L (37.0-47.0) % MCV 89.5 (81.0-99.0) fL MCH 30.6 (27.0-31.0) pg MCHC 34.2 (32.0-36.0) g/dL RDW 15.4 H (12.0-15.0) % Plt Count 167 (130-450) 10^3/uL MPV 8.4 (7.9-10.8) fL Neut # 8.4 H (1.5-6.6) 10^3/uL Lymph # 1.7 (1.5-3.5) 10^3/uL Isabella # 0.7 (0.0-1.0) 10^3/uL Eos # 0.2 (0.0-0.7) 10^3/uL Baso # 0.1 (0.0-0.1) 10^3/uL Absolute Nucleated RBC 0.00 x10^3/uL Nucleated RBCs 0.0 /100WBC PT 9.9 (9.9-12.6) secs INR 0.9 (0.8-1.2) APTT 23.9 L (24.9-33.3) secs Fibrinogen 456 (220-496) mg/dL Sodium (135-145) mmol/L Potassium (3.5-5.0) mmol/L Chloride (101-111) mmol/L Carbon Dioxide (21-32) mmol/L Anion Gap (6-13) BUN (6-20) mg/dL Creatinine (0.4-1.0) mg/dL Estimated GFR (MDRD) (>89) Glucose (70-100) mg/dL Uric Acid (2.6-7.2) mg/dL Calcium (8.5-10.3) mg/dL Total Bilirubin (0.2-1.0) mg/dL Direct Bilirubin (0.1-0.5) mg/dL AST (10-42) IU/L ALT (10-60) IU/L Alkaline Phosphatase (42-121) IU/L Total Protein (6.7-8.2) g/dL Albumin (3.2-5.5) g/dL Globulin (2.1-4.2) g/dL Urine Creatinine mg/dL Ur Total Protein Timed mg/dL Protein/Creatinin Ratio (<=0.2) - Current Medications Current Medications: Current Medications Generic Name Dose Route Start Last Admin Trade Name Freq PRN Reason Stop Dose Admin Acetaminophen 500 mg 02/17/17 13:18 02/17/17 17:09 Tylenol PO 500 mg Q4HR PRN Administration Pain or Fever > 38C (100.4F) Docusate Sodium 100 mg 02/15/17 21:00 02/17/17 19:58 Colace 100mg Capsule PO 100 mg BID LARRY Administration Lactated Ringer's 1,000 mls @ 100 mls/hr 02/15/17 12:00 02/18/17 03:29 Lr IV 50 mls/hr .Q10H LARRY Administration Ibuprofen 600 mg 02/16/17 12:00 02/18/17 01:57 Motrin PO 600 mg Q6HR LARRY Administration Labetalol HCl 10 mg 02/15/17 07:08 02/18/17 03:14 Trandate Inj IVP 80 mg Q10M PRN Administration SBP >160 or DBP >110 Labetalol HCl 200 mg 02/17/17 23:49 02/18/17 00:03 Trandate PO 02/19/17 04:00 200 mg ONCE LARRY Administration Nitrofurantoin 100 mg 02/17/17 14:00 02/17/17 23:35 Macrobid PO 100 mg BID LARRY Administration Ondansetron HCl 4 mg 02/15/17 07:08 02/18/17 03:11 Zofran Inj IVP 4 mg Q4H PRN Administration Nausea / Vomiting Oxycodone/Acetaminophen 1 - 2 tab 02/16/17 12:02 02/18/17 04:51 Percocet 5 Mg/325 Mg PO 2 tab Q4HR PRN Administration PAIN Sodium Chloride 10 ml 02/15/17 14:00 02/17/17 14:15 Normal Saline Flush 0.9% IVP 10 ml Q8HR LARRY Administration - Physical Exam Wound/Incisions: positive: Dressing dry and intact General Appearance: positive: No acute distress, Alert Eyes Bilateral: positive: PERRL, EOMI Respiratory: positive: Chest non-tender, No respiratory distress Cardiovascular: positive: Regular rate & rhythm, No murmur Abdomen: positive: Non-tender, Nml bowel sounds Skin: positive: Color nml Impression/Plan - Problem List Problem List: Eclampsia: thruout the evening and the AM pt Blood pressure increased to 160's/ 110's She received multiple doses of Labetolol IV 5,10,20,40,80 total 205 mg with 200mg oral. She also received 5 mg of Hydralizene. because of difficulty controlling her blood pressure and the Hx of eclampsia her Magnesium was restarted /. the decision to transport to [facility]. following discussion with Dr Miranda she was placed on Procardia XR 30 mg. She is being transported via Ambulance.
[2017-02-18] MEDS ORDERED: PHENYLEPHRINE 10 MG/ML VIAL IV ONE (05:39)
[2017-02-18] MEDS ORDERED: OXYTOCIN 10 UNIT/ML VIAL IV ONE (05:39)
[2017-02-18] MEDS ORDERED: MORPHINE 10 MG/ML VIAL IVP ONE (05:39)
[2017-02-18] MEDS ORDERED: ONDANSETRON 4 MG/2 ML VIAL IVP ONE (05:39)
[2017-02-18 06:44] VITALS: BP 142/90
--- NOTE | 2017-02-18 10:07 | DISCHARGE SUMMARY ---
DATE OF ADMISSION: 02/15/2017 DATE OF DISCHARGE: 02/18/2017 ADMITTING DIAGNOSES 1. A 36-week 4-day gestation. 2. Eclamptic seizure. DISCHARGE DIAGNOSES 1. A 36-week 4-day gestation. 2. Eclamptic seizure. 3. Worsening severe preeclampsia. PROCEDURE: Primary low transverse section. PRESENTING HISTORY: The patient is a 26-year-old G1, P1 female who on the morning of the 15 of February developed headache, visual changes, as well as nausea, vomiting, and then developed a seizure while at home at roughly 5:30 in the morning. She was transferred via ambulance to [facility]. Her history was that of having a normal with her last visit on the 21 of January showing a blood pressure of 123/83. Her labs showed her to be hepatitis B negative, rubella immune, A positive, and antibody screen negative. Her 50 g Glucola was normal at 94. She had a normal anatomy scan. LABORATORIES: On admission, her CBC showed a white count of 21.3, hemoglobin 13.7, platelets 242. Her creatinine was 1.2. Uric acid was noted to be 10.5. Her AST was 52. Her followup CBC showed stable platelets and a falling white count. Her protein to creatinine ratio on admission was 8.3. She had repeat labs performed on the 18 of February, which showed a white count of 11.1, hemoglobin 11.2, platelets 267. Her PT as well as PTT were essentially normal. Her creatinine had fallen to 0.9. Her uric acid had decreased to 8.8. Her ALT and AST were both normal. Her protein to creatinine ratio had decreased to 1.2. HOSPITAL COURSE: The patient was admitted and because of an unfavorable cervix, she was taken to the operating room at which time a primary low transverse section was performed without incident. Preoperatively she received labetolol for BP control. She also needed Hydralizine Blood loss during the procedure was normal. Her postoperative course she was continued on magnesium sulfate for 24 hours. She was placed on labetalol 200 mg p.o. b.i.d. She had a wound VAC placed. Her magnesium was discontinued on the evening of the 17 of February. Her blood pressure started increasing. They were running in the 160s/ 110 range. She initially received labetalol 5 mg IV push. This did not significantly affect her blood pressure. She had repeat dose of her labetalol 200 mg orally. She received stepwise doses of labetalol to reach a maximum of 80 mg. She received a total of 205 mg of labetalol IV. She also received 5 mg of hydralazine. Because of her pressures, it was decided to restart her magnesium sulfate. This was done. Her pressures came to the 140s/90s to 100s. It was decided because of her history of eclampsia, as well as difficulty controlling her blood pressure, to transfer her into the [facility]. Phone call was made to Dr. Miranda, and following consultation it was decided to transfer her in. She was given 30 mg of Procardia XL orally. Transport is accomplished via ambulance. JOB #: [id number] [id number] JOB #:[id number] [id number]
== END 2017-02-18 05:40 | disposition short-term general hospital (02) | DRG 765 ==
LOC: WFO 06:50 → FBP 06:51 → WFO 06:54 → FBP 06:55
PROVIDERS: ADMIT Obstetrics & Gynecology; ATTEND Obstetrics & Gynecology
PROC: 10D00Z1 Extraction of Products of Conception, Low, Open Approach (ICD-10-PCS; principal; 2017-02-15 09:18)
DX: O15.1 Eclampsia complicating labor (principal); Z68.41 Body mass index [BMI] 40.0-44.9, adult; O76 Abnormality in fetal heart rate and rhythm complicating labor and delivery; O99.214 Obesity complicating childbirth; E66.01 Morbid (severe) obesity due to excess calories; O34.03 Maternal care for unspecified congenital malformation of uterus, third trimester; Q51.3 Bicornate uterus; Z37.0 Single live birth; Z3A.36 36 weeks gestation of pregnancy; Z82.49 Family history of ischemic heart disease and other diseases of the circulatory system
CPT/HCPCS: 36415; 80048; 80053; 80076; 80306; 81001; 81003; 82570; 83615; 83735; 84156; 84450; 84550; 85025; 85384; 85610; 85730; 86850; 86900; 86901; 87086; 88307

== ENCOUNTER 2017-02-18 05:45 | Outpatient (CLI) | payer OTHER | END 2017-02-18 05:46 | disposition short-term general hospital (02) | LOC: EMS 05:45 | PROVIDERS: ATTEND Surgery | DX: O15.9 Eclampsia, unspecified as to time period (principal) | CPT/HCPCS: A0170; A0425; A0427 ==

== ENCOUNTER 2023-02-11 09:25 | Outpatient (CLI) | payer OTHER ==
[2023-02-11 09:52] LABS: BASOPHILS # (AUTO) 0.1 10^3/uL (0.0-0.1); BASOPHILS % (AUTO) 0.5 %; EOSINOPHILS # (AUTO) 0.1 10^3/uL (0.0-0.7); EOSINOPHILS % (AUTO) 1.3 %; HCT - HEMATOCRIT 37.2 % (37.0-47.0); HGB - HEMOGLOBIN 12.6 g/dL (12.0-16.0); LYMPHOCYTES # (AUTO) 1.7 10^3/uL (1.5-3.5); LYMPHOCYTES % (AUTO) 15.1 %; MEAN CORPUSCULAR HEMOGLOBIN 29.2 pg (27.0-31.0); MEAN CORPUSCULAR HGB CONC 33.9 g/dL (32.0-36.0); MEAN CORPUSCULAR VOLUME 86.1 fL (81.0-99.0); MEAN PLATELET VOLUME 9.7 fL (7.9-10.8); MONOCYTES # (AUTO) 0.7 10^3/uL (0.0-1.0); MONOCYTES % (AUTO) 6.7 %; NEUTROPHILS # (AUTO) 8.2 10^3/uL (1.5-6.6); NEUTROPHILS % (AUTO) 75.2 %; PLT - PLATELET COUNT 287 10^3/uL (130-450); RED BLOOD COUNT 4.32 10^6/uL (4.20-5.40); RED CELL DISTRIBUTION WIDTH 14.3 % (12.0-15.0); WHITE BLOOD COUNT 10.9 x10^3/uL (4.8-10.8)
[2023-02-11 09:59] LABS: CREATININE,URINE 43.2 mg/dL; PROTEIN/CREATININE RATIO,URINE 0.1 (<=0.2)
[2023-02-11 10:00] LABS: ALBUMIN 3.6 g/dL (3.2-5.5); ALBUMIN/GLOBULIN RATIO 1.2 (1.0-2.2); BILIRUBIN,TOTAL 0.3 mg/dL (0.2-1.0); CALCIUM 9.2 mg/dL (8.5-10.3); CREATININE 0.5 mg/dL (0.6-1.3); POTASSIUM 4.2 mmol/L (3.5-4.5); TOTAL PROTEIN 6.7 g/dL (6.4-8.9)
== END 2023-02-11 09:26 | disposition home or self-care (01) ==
LOC: LAB 09:25
PROVIDERS: ATTEND Nurse Practitioner
DX: O16.3 Unspecified maternal hypertension, third trimester (principal)
CPT/HCPCS: 36415; 80053; 82570; 84156; 85025; 86850; 86900; 86901

== ENCOUNTER 2023-02-27 09:09 | Outpatient (CLI) | payer OTHER ==
[2023-02-27 09:23] LABS: HCT - HEMATOCRIT 37.3 % (37.0-47.0); HGB - HEMOGLOBIN 12.4 g/dL (12.0-16.0); MEAN CORPUSCULAR HEMOGLOBIN 28.5 pg (27.0-31.0); MEAN CORPUSCULAR HGB CONC 33.2 g/dL (32.0-36.0); MEAN CORPUSCULAR VOLUME 85.7 fL (81.0-99.0); MEAN PLATELET VOLUME 9.7 fL (7.9-10.8); RED BLOOD COUNT 4.35 10^6/uL (4.20-5.40); RED CELL DISTRIBUTION WIDTH 14.4 % (12.0-15.0); WHITE BLOOD COUNT 11.9 x10^3/uL (4.8-10.8)
[2023-02-27 09:29] LABS: CREATININE,URINE 120.7 mg/dL; PROTEIN/CREATININE RATIO,URINE 0.1 (<=0.2)
[2023-02-27 09:43] LABS: ALBUMIN 3.2 g/dL (3.2-5.5); ALBUMIN/GLOBULIN RATIO 0.9 (1.0-2.2); BILIRUBIN,TOTAL 0.4 mg/dL (0.2-1.0); CREATININE 0.5 mg/dL (0.4-1.0); POTASSIUM 3.7 mmol/L (3.5-5.0); TOTAL PROTEIN 6.6 g/dL (6.7-8.2)
== END 2023-02-27 09:10 | disposition home or self-care (01) ==
LOC: LAB 09:09
PROVIDERS: ATTEND Obstetrics & Gynecology
DX: O09.893 Supervision of other high risk pregnancies, third trimester (principal)
CPT/HCPCS: 36415; 80053; 82570; 83615; 84156; 85027

== ENCOUNTER 2023-03-03 09:39 | Outpatient (CLI) | payer OTHER ==
[2023-03-03 10:07] VITALS: BP 120/73
--- NOTE | 2023-03-05 16:14 | PROCEDURE REPORT ---
- HPI Diagnosis/Indication for NST: Gestational Hypertension Current EDU 04/08/23 Gestation 34 Weeks and 6 Days 2 Para 1 Vital Signs Temperature 98.2 F 03/03/23 09:53 Heart Rate 93 03/03/23 09:53 Respiratory Rate 16 03/03/23 09:53 Blood Pressure 120/73 03/03/23 09:53 Temperature 98.2 F 03/03/23 09:53 Heart Rate 93 03/03/23 09:53 Respiratory Rate 16 03/03/23 09:53 Blood Pressure 120/73 03/03/23 09:53 O2 Saturation If not protocol: Oxygen Flow, liters/minute - NST Procedure NST Procedure Start Date 03/03/23 Start Time 09:46 Stop Time 10:26 Vibroacoustic Stimulation Used No Patient States Movement Yes EFM: 140s, moderate variability, positive 15x15 accelerations, no decelerations [place]: contractions q5m NST reactive/Cat 1 Performed and read 03/03/23 - Results and Plan Plan: 32yo at 34.6w presenting for scheduled NST for history of ecclampsia, as recommended by MFM - NST reactive - BP normal - Follow up as scheduled
== END 2023-03-03 10:51 | disposition home or self-care (01) ==
LOC: FBP 09:39 → WFO 09:39
PROVIDERS: ATTEND Obstetrics & Gynecology
DX: O13.3 Gestational [pregnancy-induced] hypertension without significant proteinuria, third trimester (principal); O99.213 Obesity complicating pregnancy, third trimester; O34.211 Maternal care for low transverse scar from previous cesarean delivery; Z3A.34 34 weeks gestation of pregnancy
CPT/HCPCS: 59025

== ENCOUNTER 2023-03-05 14:34 | Outpatient (CLI) | payer OTHER ==
[2023-03-05 15:02] VITALS: BP 126/75
--- NOTE | 2023-03-05 16:18 | PROCEDURE REPORT ---
- HPI Diagnosis/Indication for NST: Gestational Hypertension Current EDU 04/08/23 Gestation 35 Weeks and 1 Days 2 Para 1 Vital Signs Temperature 98.4 F 03/05/23 14:51 Heart Rate 85 03/05/23 14:51 Respiratory Rate 19 03/05/23 14:51 Blood Pressure 126/75 03/05/23 14:51 Temperature 98.4 F 03/05/23 14:51 Heart Rate 85 03/05/23 14:51 Respiratory Rate 03/05/23 14:51 Blood Pressure 126/75 03/05/23 14:51 O2 Saturation If not protocol: Oxygen Flow, liters/minute - NST Procedure NST Procedure Start Date 03/05/23 Start Time 14:50 Stop Time 10:26 Patient States Movement Yes EFM: 140s, moderate variability, positive 15x15 accelerations, no decelerations [place]: irregular contractions NST reactive/Cat 1 Performed and read 03/05/23 - Results and Plan Findings/Impression: 32yo presents for scheduled NST for gestational hypertension/history of ecclampsia - NST reactive - BP normal - Follow up as scheduled
--- NOTE | 2023-03-06 13:32 | Ultrasound Report ---
PROCEDURE: OB Biophysical Profile INDICATIONS: OBESITY IN ; GEST HTN TECHNIQUE: Real-time scanning was performed of the fetus, with image documentation. Biophysical prof ile was also obtained. Endovaginal scanning: Not performed COMPARISON: None. FINDINGS: Biophysical profile: Tone: 2 points. Movement: 2 points. Respiration: 2 points. Largest pocket of fluid: 2 points. IMPRESSION: BPP 8 of 8 Reviewed by: Doyle Reyez on 03/06/2023 1:31 PM PDT Approved by: Doyle Reyez on 03/06/2023 1:31 PM PDT Station ID: [id number]
--- NOTE | 2023-03-06 13:32 | Ultrasound Report ---
PROCEDURE: OB F/U or Repeat INDICATIONS: OBESITY IN ; GEST HTN; SIZE/DATES DISCREP OUTSIDE/PRIOR DATING DATA: Last menstrual period (LMP): Not listed. LMP-based estimated date of delivery (ROSANNE): Not applicable. First dating scan (date and location): Not listed. Estimated date of delivery (ROSANNE) from first dating scan: Not applicable. The below data below was generated using the ROSANNE of 04/08/2023. TECHNIQUE: Real-time scanning was performed of the fetus, with image documentation and biometric measurements. Endovaginal scanning: Not performed. COMPARISON: None. FINDINGS: General: A single living intrauterine gestation is present. Presentation: Breech Placenta: Placental position is fundal, without previa. Amniotic fluid index: 26.1 cm, 97th percentile for gestational age. heart rate: 160 beats per minute. Maternal cervical canal: 5.15 cm long; normal length is 2.5 cm or more. biometrics: Biparietal diameter: 9.3 cm, 37 weeks 6 days Head circumference: 35 cm, 40 weeks 5 days Abdominal circumference: 34.9 cm, 38 weeks 6 days Femur length: 7.07 cm, 36 weeks 2 days Estimated gestational age from initial scan: 35 weeks 1 day Composite gestational age from present scan: 38 weeks 3 days Estimated weight and percentile: 3473 g, 99% Measurement variability in biometric dating: +/- 10 days from 12-20 weeks gestation, +/- 2 weeks from 20-30 weeks gestation, +/- 3 weeks at 30 weeks gestation or more. Other: BPP 8 of 8. IMPRESSION: Single living intrauterine at 35 weeks 1 day, ROSANNE of 04/08/2023. Estimated weight of 3473 g, 99th percentile. Polyhydramnios, KEI of 26.1 cm. Reviewed by: Doyle Reyez on 03/06/2023 1:30 PM PDT Approved by: Doyle Reyez on 03/06/2023 1:30 PM PDT Station ID: [id number]
== END 2023-03-05 15:51 | disposition home or self-care (01) ==
LOC: DI 14:34 → FBP 14:34 → DI 15:51
PROVIDERS: ATTEND Obstetrics & Gynecology
DX: O13.3 Gestational [pregnancy-induced] hypertension without significant proteinuria, third trimester (principal); O40.3XX0 Polyhydramnios, third trimester, not applicable or unspecified; O34.211 Maternal care for low transverse scar from previous cesarean delivery; O99.213 Obesity complicating pregnancy, third trimester; O26.843 Uterine size-date discrepancy, third trimester; Z3A.35 35 weeks gestation of pregnancy
CPT/HCPCS: 59025

== ENCOUNTER 2023-03-06 08:00 | Outpatient (CLI) | payer OTHER | END 2023-03-06 23:59 | disposition home or self-care (01) | LOC: LAB 08:00 | PROVIDERS: ATTEND Obstetrics & Gynecology | DX: O09.893 Supervision of other high risk pregnancies, third trimester (principal); Z36.85 Encounter for antenatal screening for Streptococcus B | CPT/HCPCS: 87797 ==

== ENCOUNTER 2023-03-10 09:35 | Outpatient (CLI) | payer OTHER ==
[2023-03-10 10:00] VITALS: BP 118/72
--- NOTE | 2023-03-10 17:09 | PROCEDURE REPORT ---
- HPI Diagnosis/Indication for NST: Gestational Hypertension Current EDU 04/08/23 Gestation 35 Weeks and 6 Days 2 Para 1 Vital Signs Temperature 98.1 F 03/10/23 09:49 Heart Rate 81 03/10/23 09:49 Respiratory Rate 16 03/10/23 09:49 Blood Pressure 118/72 03/10/23 09:49 Temperature 98.1 F 03/10/23 09:49 Heart Rate 81 03/10/23 09:49 Respiratory Rate 16 03/10/23 09:49 Blood Pressure 118/72 03/10/23 09:49 O2 Saturation If not protocol: Oxygen Flow, liters/minute - NST Procedure NST Procedure Start Date 03/10/23 Start Time 09:47 Stop Time 10:35 Vibroacoustic Stimulation Used No Patient States Movement Yes - Results and Plan Plan: Patient is a 32-year-old G2, P1 at 36 weeks gestation here for scheduled NST. NST Performed 03/10/2023 NST Read 03/10/2023 FHT: 130 bpm baseline, moderate variability, accelerations present, no decelerations. Reactive NST [place]: Quiescent Diagnosis 36 weeks gestation History of preeclampsia Gestational hypertension Continue with twice-weekly NST.
== END 2023-03-10 10:44 | disposition home or self-care (01) ==
LOC: WFO 09:35 → FBP 09:37 → WFO 10:44
PROVIDERS: ATTEND Obstetrics & Gynecology
DX: O13.3 Gestational [pregnancy-induced] hypertension without significant proteinuria, third trimester (principal); Z3A.35 35 weeks gestation of pregnancy
CPT/HCPCS: 59025

== ENCOUNTER 2023-03-13 10:37 | Outpatient (CLI) | payer OTHER ==
[2023-03-13 11:55] VITALS: BP 101/53; O2SAT 100
--- NOTE | 2023-03-13 12:20 | PROCEDURE REPORT ---
- HPI Diagnosis/Indication for NST: Gestational Hypertension Current EDU 04/09/23 Gestation 36 Weeks and 1 Days 2 Para 1 Vital Signs Temperature 97.9 F 03/13/23 11:10 Heart Rate 83 03/13/23 11:10 Respiratory Rate 17 03/13/23 11:10 Blood Pressure 101/53 L 03/13/23 11:10 O2 Saturation 100 03/13/23 11:10 Temperature 97.9 F 03/13/23 11:10 Heart Rate 83 03/13/23 11:10 Respiratory Rate 17 03/13/23 11:10 Blood Pressure 101/53 L 03/13/23 11:10 O2 Saturation 100 03/13/23 11:10 If not protocol: Oxygen Flow, liters/minute - NST Procedure NST Procedure Start Date 03/13/23 Start Time 10:48 Stop Time 11:13 Vibroacoustic Stimulation Used No Patient States Movement Yes - Results and Plan Plan: Patient is a 32-year-old -0-0-1 at 36 weeks gestation here for scheduled NST. NST Performed 03/13/2023 NST Read 03/13/2023 FHT: 135 bpm baseline, moderate variability, accelerations present, no decelerations. Reactive NST [place]: quiescent Diagnosis 36 weeks gestation Gestational hypertension History of eclampsia Continue with twice-weekly NST.
== END 2023-03-13 11:20 | disposition home or self-care (01) ==
LOC: WFO 10:37 → FBP 10:39 → WFO 11:20
PROVIDERS: ATTEND Obstetrics & Gynecology
DX: O13.3 Gestational [pregnancy-induced] hypertension without significant proteinuria, third trimester (principal); O99.213 Obesity complicating pregnancy, third trimester; O34.211 Maternal care for low transverse scar from previous cesarean delivery; Z3A.36 36 weeks gestation of pregnancy
CPT/HCPCS: 59025

== ENCOUNTER 2023-03-18 06:31 | Inpatient (IN) | payer OTHER ==
[~2023-03-18 06:31] MED LIST: LACTATED RINGERS 1,000 ML IV SCH; ceFAZolin (2G) 2 GM in SODIUM CHLORIDE 0.9% MINIBAG 100 ML IV ONE; ceFAZolin 2 GM VIAL IVP ONE
[2023-03-18] MEDS ORDERED: LACTATED RINGERS 1,000 ML IV SCH ×3 (06:45→11:00)
[2023-03-18] MEDS ORDERED: fentaNYL 100 MCG/2 ML VIAL ONE (07:28)
[2023-03-18] MEDS ORDERED: MORPHINE PF 5 MG/10 ML VIAL ONE (07:28)
[2023-03-18] MEDS ORDERED: CELECOXIB 100 MG CAPSULE PO ONE (07:45)
[2023-03-18] MEDS ORDERED: GABAPENTIN 400 MG CAPSULE PO ONE (07:45)
[2023-03-18] MEDS ORDERED: ACETAMINOPHEN 1,000 MG/100 ML 1,000 MG/100 ML BAG IV ONE (07:45)
[2023-03-18 08:04] LABS: BASOPHILS % (AUTO) 0.4 %; EOSINOPHILS # (AUTO) 0.2 10^3/uL (0.0-0.7); HCT - HEMATOCRIT 35.8 % (37.0-47.0); HGB - HEMOGLOBIN 12.4 g/dL (12.0-16.0); LYMPHOCYTES # (AUTO) 1.5 10^3/uL (1.5-3.5); LYMPHOCYTES % (AUTO) 15.8 %; MEAN CORPUSCULAR HGB CONC 34.6 g/dL (32.0-36.0); MEAN CORPUSCULAR VOLUME 83.8 fL (81.0-99.0); MONOCYTES # (AUTO) 0.6 10^3/uL (0.0-1.0); MONOCYTES % (AUTO) 6.8 %; NEUTROPHILS # (AUTO) 6.9 10^3/uL (1.5-6.6); NEUTROPHILS % (AUTO) 73.6 %; PLT - PLATELET COUNT 287 10^3/uL (130-450); RED BLOOD COUNT 4.27 10^6/uL (4.20-5.40); RED CELL DISTRIBUTION WIDTH 14.6 % (12.0-15.0); WHITE BLOOD COUNT 9.4 x10^3/uL (4.8-10.8)
--- NOTE | 2023-03-18 08:14 | HISTORY & PHYSICAL EXAMINATION ---
Admit History - : 2 Parity: 1 Risk/History: positive: Previous , induced HTN Complications This : positive: induced HTN Smoking Status: Never smoker - Mother's Labs Mother's Blood Type: positive: A Mother's RH: positive: Positive GBS: positive: Group B Strep Positive Rubella Status: positive: Immune - Other Maternal History Other Maternal History: HPI: 32-year-old -0-0-1 at 37 weeks 0 days gestation admitted for planned repeat low-transverse section. She has good movement. Denies loss of fluid. No WADE/BV or RUQP. No vaginal bleeding. Denies nausea and vomiting. Denies urinary urgency or dysuria. All other symptoms reviewed and were negative except per HPI. Course Previous ECLAMPSIA: History: Delivery at 36&4 days gestation. Elevated protein and severe range blood pressures. Postop difficult to control blood pressures. Mag twice post- , was transferred to [facility] for further management -No BP elevations outside of Gestational hypertension: - BP at 31w of 120/90. Repeated blood pressure in triage was elevated, then subsequently normal. Met criteria for gestational hypertension. This : -MFM consultation at [facility] . Taking ASA. 162 mg Daily -Baseline preeclampsia labs: 24-hour urine of 113, AST/ALT within normal limits.. -Repeat labs 02/11/2023: AST/ALT 05/26, creatinine: 0.5, platelets: 287, urine protein/creatinine: 0.1. -Scans monthly. Most recent EFW on 01/15/2023 showed EFW 1470 g, 64th percentile. -NSTs at 34 weeks. Already ordered. -Third trimester preeclampsia labs- 02/27 AST/ALT 15/, Previous , Likely low-transverse, awaiting records. Obesity: Recommend weight gain of 11 to 20 pounds. Desires sterility: Consent signed LMP: unknown ROSANNE by LMP: US:08/30/2022, no u/s results but mentioned in OV notes Final ROSANNE: 04/08/2023 Pre- Weight:232.69 BMI: 41.22 pre- estimate. Today 45.9 Blood type: A+ Ab Screen: negative CBC: PLT 362 HCT 40 HGB 13.7 RUB:immune VZV:immune HBsAg: NR HepC: NR RPR/AB-EIA:NR HIV:neg Flu: no Covid: Pf x2 PAP: 03/2021 Normal GC/CT:negative HSV: Deniesx2 Genetic testing:CF neg 09/03, SMA Carrier - FOB Neg, Aneuploidy: NIPT low risk XY FAS:WNL Placenta: posterior, no previa KEI: WNL EFW: 1407g 61%ile 50gm OGCT:early 96; 133 3HR GTT: Not indicated TDAP: 01/23/25 Breast Pump: Given 3rd trimester H/H 12.6/37.2 PLT 287 GBS:POSITIVE Delivery plan: Repeat c/s - 03/18 Contraception: *DESIRES BTL* Consents signed and in chart PMH Eclampsia PSH section x1 OB History -0-0-1 1. 02/15/2007, 36 weeks, section, female, 2466 g, eclampsia SH Denies tobacco, alcohol, drugs Family History Mother: Breast cancer age 45 Father: Aneurysm, [place], skin cancer Allergies No known drug allergies Medications vitamin Aspirin Physical exam: General: Alert, oriented, no acute distress Head: Normal cephalic atraumatic Eyes: PERRLA, extraocular motions intact. Respiratory: Normal rate of respiration. No accessory muscle use, normal respiratory effort. Cardiovascular: Regular rate and rhythm Abdomen: Gravid, nontender, nondistended Extremities: Normal range of motion Neuro: Oriented x3. Normal movements Psych: Appropriate mood and affect. Normal judgment and insight FHT: 120 beats per minute baseline, moderate variability, accelerations present, no decelerations. [place]: quiescent Plan 32-year-old -0-0-1 at 37 weeks 0 days gestation admitted for repeat low- transverse section and bilateral tubal ligation 1. Repeat section -Admit to L&D, admit labs, 3 g cefazolin for surgical prophylaxis 2. Previous low-transverse section x1 3. 37 weeks gestation 4. Gestational hypertension 5. History of eclampsia 6. Desires permanent sterility -Consent signed and in chart. Plan for concomitant bilateral tubal ligation 7. Obesity class III, BMI 48.2 8. malpresentation -Breech presentation confirmed on ultrasound 9. SMA carrier -Father the baby negative - HPI Current EDU 04/08/23 Gestation 37 Weeks and 0 Days 2 Vital Signs Temperature 98.1 F 03/18/23 06:58 Heart Rate 86 03/18/23 06:58 Respiratory Rate 16 03/18/23 06:58 Blood Pressure 112/71 03/18/23 06:58 Temperature 98.1 F 03/18/23 06:58 Heart Rate 86 03/18/23 06:58 Respiratory Rate 16 03/18/23 06:58 Blood Pressure 112/71 03/18/23 06:58 O2 Saturation If not protocol: Oxygen Flow, liters/minute - NST Procedure NST Procedure Start Time 10:48 Stop Time 11:13 Meds/Allgy - Allergies Allergies/Adverse Reactions: Allergies Allergy/AdvReac Type Severity Reaction Status Date / Time No Known Drug Allergies Allergy Verified 02/15/17 09:20 Physical - Abdominal Exam Vital Signs: Temp Pulse Resp BP Pulse Ox O2 Flow Rate 98.1 F 86 16 112/71 03/18/23 06:58 03/18/23 06:58 03/18/23 06:58 03/18/23 06:58 Plan for Labor - Plan For Labor I expect patient to be DC'd or transferred within 96 hours.: Yes
[2023-03-18] MEDS ORDERED: ceFAZolin 3 GM in SODIUM CHLORIDE 0.9% 100ML 100 ML IV STA (08:19)
[2023-03-18] MEDS ORDERED: fentaNYL 100 MCG/2 ML VIAL IT ONE (08:50)
[2023-03-18] MEDS ORDERED: MORPHINE PF 5 MG/10 ML VIAL IT ONE (08:50)
[2023-03-18] MEDS ORDERED: ATROPINE ABBOJECT 1 MG/10 ML SYRINGE IVP PRN (09:36)
[2023-03-18] MEDS ORDERED: ePHEDrine 50 MG/ML VIAL IVP PRN ×2 (09:36→10:50)
[2023-03-18] MEDS ORDERED: NALOXONE 0.4 MG/ML VIAL IVP PRN ×3 (09:36→10:50)
[2023-03-18] MEDS ORDERED: fentaNYL 100 MCG/2 ML VIAL IVP PRN (09:36)
[2023-03-18] MEDS ORDERED: HYDROmorphone 0.5 MG/0.5 ML SYRINGE IVP PRN (09:36)
[2023-03-18] MEDS ORDERED: ONDANSETRON 4 MG/2 ML VIAL IVP PRN ×3 (09:36→11:42)
--- NOTE | 2023-03-18 09:36 | ANESTHESIA ---
Pre-Anesthesia VS, & Labs - Diagnosis previous csection - Procedure c section Vital Signs: Temp Pulse Resp BP Pulse Ox O2 Flow Rate 36.7 C 86 16 112/71 03/18/23 06:58 03/18/23 06:58 03/18/23 06:58 03/18/23 06:58 Height: 5 ft 3 in Weight (kg): 122.924 kg Body Mass Index: 47.9 BMI Classification: Morbidly Obese - NPO >8 hours - Is Patient ?: Yes - Lab Results Current Lab Results: Laboratory Tests 03/18/23 06:55: WBC 9.4, RBC 4.27, Hgb 12.4, Hct 35.8 L, MCV 83.8, MCH 29.0, MCHC 34.6, RDW 14.6, Plt Count 287, MPV 10.0, Neut # (Auto) 6.9 H, Lymph # (Auto) 1.5, Divide # (Auto) 0.6, Eos # (Auto) 0.2, Baso # (Auto) 0.0, Absolute Nucleated RBC 0.00, Nucleated RBC % 0.0 Lab results reviewed: Yes Fish Bones: 03/18/23 06:55 Home Medications and Allergies Active Medications Lactated Ringer's (Lr) 1,000 mls @ 0 mls/hr IV .Q0M LARRY Last Admin: 03/18/23 07:40 Dose: 125 mls/hr Allergies/Adverse Reactions: Allergies Allergy/AdvReac Type Severity Reaction Status Date / Time No Known Drug Allergies Allergy Verified 02/15/17 09:20 Anes History & Medical History - Anesthetic History Anesthesia Complications: reports: No previous complications Family history of Anesthesia Complications: Denies Family history of Malignant Hyperthermia: Denies - Medical History Cardiovascular: reports: None Pulmonary: reports: None Gastrointestinal: reports: GERD Urinary: reports: None Neuro: reports: Seizure disorder (hx of eclampsia) Endocrine/Autoimmune: reports: None Blood Disorders: reports: None Skin: reports: None Smoking Status: Never smoker - Obstetrical History : 2 Parity: 1 Events: reports: Previous , induced HTN Complications: reports: induced HTN Exam General: Alert, Oriented x3, Cooperative Dental: WNL Mouth Openin Fingerbreadth Neck Mobility: Normal Mallampati classification: II Thyromental Distance: 4-6 cm Respiratory: Lungs clear Cardiovascular: Regular rate Plan Anesthesia Type: Spinal Consent for Procedure(s) Verified and Reviewed: Yes Code Status: Attempt Resuscitation ASA classification: 3-Severe systemic disease Is this case an emergency?: No
[2023-03-18] MEDS ORDERED: LACTATED RINGERS 1,000 ML IV ONE (10:42)
[2023-03-18] MEDS ORDERED: LABETALOL 20 MG/4 ML SYRINGE IVP PRN ×3 (10:46)
[2023-03-18] MEDS ORDERED: NIFEdipine 10 MG CAPSULE PO PRN (10:46)
[2023-03-18] MEDS ORDERED: oxyCODONE 5 MG TABLET PO PRN (10:46)
[2023-03-18] MEDS ORDERED: hydrALAZINE INJ 20 MG/ML VIAL IVP PRN ×2 (10:46)
[2023-03-18] MEDS ORDERED: OXYTOCIN/SODIUM CHLORIDE 500 ML IV PRN (10:46)
[2023-03-18] MEDS ORDERED: diphenhydrAMINE INJ 50 MG/ML VIAL IVP PRN (10:50)
[2023-03-18] MEDS ORDERED: NALBUPHINE 10 MG/ML AMP IVP PRN (10:50)
--- NOTE | 2023-03-18 10:57 | OPERATIVE REPORT ---
Operative Report - General Admit Date: 03/18/23 Procedure Date: 03/18/23 Planned Procedure: Repeat C/S and tubal ligation via salpingectomy Pre-Op Diagnosis: IUP at 37w, h/o eclampsia, satisfied parity Procedure Performed: RCS via pfannensteil and BTL via salpingectomy Post Op Diagnosis: GIAN - Procedure Note Primary Surgeon: Deja Secondary Surgeon: Gus Anesthesia Provider: ONOFRE Anesthesia Technique: Spinal Pathology: cord gasses sent b/l tubes in total IV Fluids (mL): 2,000 Estimated Blood Loss (mL): 600 Urine Output (mL): 100 - Other Other Information/Narrative: OPERATIVE NOTE Pre-operative diagnosis: 1. IUP @ 37w 2. Breech 3. h/o eclampsia in prior 4. Satisfied parity Procedure: RLTCS via pfannensteil skin incision and tubal ligation via salpingectomy Post-operative diagnosis: GIAN Surgeon: Deja Supervisor Laboratory: Gus Mejia Anesthesia: Spinal Findings: viable male infant, breech presentation, Apgars 6/9, born at 0924 heart shaped uterus normal tubes & ovaries bilaterally no notable adhesions Complications: None apparent Pathology: cord gases and b/l tubes. EBL: 600cc UOP: 100cc IVF: 2000cc Procedure in detail: After risks benefits and alternatives, as well as indication for procedure and anticipated post-operative recovery course, were discussed with the patient informed consent was obtained and patient was taken to the operating theater where spinal anesthesia was administered without difficulty. Augustin catheter was inserted in normal sterile fashion. Pt was prepared and draped in normal sterile fashion. Anesthesia was tested and found to be adequate. Prior to skin incision pt received recommended antibiotics, surgical time out was performed, and all persons in the operating theater participated in time out and agreed. Pfannensteil skin incision made with scalpel. Carried down to level of fasia. Fascia incised with and extended. Anterior aspect of rectus sheath dissected off of rectus muscle without difficulty. Peritoneum entered without difficulty and surgical field extended with gentle lateral traction. Lower uterine segment identified, well developed. Uterine incision made with scalpel, uterus entered bluntly and incision extended bluntly. Surgeons right hand entered into lower uterine segment, presenting part elevated to level of incision and infant delivered atraumatically. Cord clamped and cut x2, baby handed to awaiting public weigher, apgars as noted above. gas obtained. Placenta delivered manually. Uterus exteriorized and wrapped in moist lap. Uterine cavity cleaned with moist lap and found to be free of membranes or debris. heart shape visualized and affirmed during manual cleaning. Uterine incision closed with 0 vicryl, running suture, and subsequently imbricated with the same suture. Incision inspected, hemostatic. Attention turned to tubal ligation. Salpingectomy performed with ligasure. Fimbria attached to ovary with adhesions so fimbrae and tubes removed in two pieces - fimbrial portion followed by remainder of tube. all sent to pathology. Hemostatic surgical field. Hysterotomy reinspected, figure of 8 suture placed to have hemostasis at midline. hemostatic. Uterus returned to abdominal cavity. All inspected, hemostatic. Peritoneum reapproximated without suture. Muscles inspected, fascia inspected, hemostatic. Fascia closed with 0 PDS in running fashion. Suture broke at knot so was returned to midline, and fascia closed in two parts - both PDS suture, meeting at midline. Subcutaneous tissue irrigated, and then closed with 2.0 vicryl in running fashion. Skin incision closed with subcuticular sutures with 3.0 vicryl. Pt and tolerated procedure well. All counts correct. Pt to PACU in stable condition.
[2023-03-18] MEDS: KETOROLAC 30 MG/ML VIAL IVP SCH ×2 (13:25→19:27)
--- NOTE | 2023-03-18 16:15 | ANESTHESIA POST OP EVALUATION ---
Anesthesia Post Eval - Post Anesthesia Eval Vitals: Last Vital Signs Temp 36.2 C L 03/18/23 14:00 Pulse 91 03/18/23 14:00 Resp 16 03/18/23 14:00 BP 122/66 03/18/23 14:00 Pulse Ox 96 03/18/23 14:00 O2 Flow Rate CV Function Including HR & BP: Stable Pain Control: Satisfactory Nausea & Vomiting: Negative Mental Status: Baseline Respiratory Status: Airway Patent Hydration Status: Satisfactory Anesthesia Complications: None
[2023-03-18] MEDS: ACETAMINOPHEN 500 MG TABLET PO SCH (17:06)
[2023-03-18] MEDS: DOCUSATE SODIUM 100 MG CAPSULE PO SCH (20:57)
[2023-03-19] MEDS: ACETAMINOPHEN 500 MG TABLET PO SCH ×3 (01:13→16:57)
[2023-03-19] MEDS: KETOROLAC 30 MG/ML VIAL IVP SCH (01:14)
[2023-03-19 05:19] LABS: HCT - HEMATOCRIT 32.7 % (37.0-47.0); MEAN CORPUSCULAR HEMOGLOBIN 28.7 pg (27.0-31.0); MEAN CORPUSCULAR HGB CONC 33.6 g/dL (32.0-36.0); MEAN CORPUSCULAR VOLUME 85.4 fL (81.0-99.0); MEAN PLATELET VOLUME 9.2 fL (7.9-10.8); RED BLOOD COUNT 3.83 10^6/uL (4.20-5.40); RED CELL DISTRIBUTION WIDTH 14.6 % (12.0-15.0); WHITE BLOOD COUNT 11.2 x10^3/uL (4.8-10.8)
[2023-03-19] MEDS: IBUPROFEN 600 MG TABLET PO SCH ×3 (07:42→19:26)
[2023-03-19] MEDS: DOCUSATE SODIUM 100 MG CAPSULE PO SCH ×2 (08:55→20:59)
--- NOTE | 2023-03-19 10:16 | PROVIDER PROGRESS NOTE ---
Subjective - Prog Note Date Prog Note Date: 03/19/23 Prog Note Time: 10:14 - Subjective Subjective: Patient is postoperative day 1 status post repeat section and bilateral tubal ligation. Patient is doing well this morning. She is ambulating, t olerating regular diet, spontaneously voiding. She denies chest pain or shortness of breath. Pain is well controlled. Objective - Vital Signs/Intake & Output Reviewed Vital Signs: Yes Vital Signs: Vital Signs x48h Temp Pulse Resp BP Pulse Ox 03/19/23 09:08 97.8 F 80 16 108/63 98 03/19/23 05:58 98.2 F 76 18 117/79 100 Intake & Output: Intake & Output 03/16/23 03/17/23 03/18/23 03/19/23 23:59 23:59 23:59 23:59 Intake Total 1100 Output Total 430 1075 Balance 670 -1075 - Objective General Appearance: positive: No acute distress Respiratory: positive: Breath sounds nml Cardiovascular: positive: Regular rate & rhythm Abdomen: positive: Non-tender (appropriately tender) Extremities: positive: No pedal edema - Lab Results Fish Bones: 03/19/23 05:11 Other Labs: Lab Results x24hrs 03/19/23 03/18/23 Range/Units 05:11 06:55 WBC 11.2 H (4.8-10.8) x10^3/uL RBC 3.83 L (4.20-5.40) 10^6/uL Hgb 11.0 L (12.0-16.0) g/dL Hct 32.7 L (37.0-47.0) % MCV 85.4 (81.0-99.0) fL MCH 28.7 (27.0-31.0) pg MCHC 33.6 (32.0-36.0) g/dL RDW 14.6 (12.0-15.0) % Plt Count 238 (130-450) 10^3/uL MPV 9.2 (7.9-10.8) fL Blood Type A POSITIVE Antibody Screen NEGATIVE Assessment/Plan - Problem List (1) delivery delivered Impression: Uncomplicated course. Gestational hypertension: Patient's blood pressures have been within normal limits. Counseled patient on signs and symptoms of preeclampsia including headache, changes in vision, right upper quadrant pain, increased peripheral edema. Patient counseled preeclampsia can occur up to 6 weeks . She will have close follow-up as an outpatient.
[2023-03-19] MEDS ORDERED: IBUPROFEN 600 MG TABLET PO SCH (11:00)
[2023-03-20] MEDS: ACETAMINOPHEN 500 MG TABLET PO SCH ×2 (01:13→09:52)
[2023-03-20] MEDS: IBUPROFEN 600 MG TABLET PO SCH ×3 (01:13→13:42)
[2023-03-20] MEDS: DOCUSATE SODIUM 100 MG CAPSULE PO SCH (07:43)
[2023-03-20 08:29] VITALS: BP 123/80; O2SAT 99
--- NOTE | 2023-03-20 10:32 | DISCHARGE SUMMARY ---
"Discharge Summary Discharge Date: 03/20/23 Discharging Provider: Vianca Primary Care Provider: Gus Code Status: Attempt Resuscitation Condition at Discharge: Good Discharge Disposition: 01 Home, Self Care - DIAGNOSES Admission Diagnoses: 1. Gestational hypertension 2. Breech presentation Discharge Diagnoses with Status of Each Condition: 1. Gestational hypertension 2. Repeat section - CONSULTS | PROCEDURES Procedures: Repeat section and bilateral tubal ligation - HOSPITAL COURSE Hospital Course: Patient presented for repeat section and bilateral tubal ligation secondary to gestational hypertension, history of previous section, breech presentation. Patient had an uncomplicated postoperative course and was discharged home on postop day 2. Patient has history of eclampsia and previous . She required no antihypertensives during this and no antihypertensive medications . She was extensively counseled on signs and symptoms of preeclampsia, she has a close outpatient follow-up for blood pressure check and close follow-up appointment in the office. - ALLERGIES Allergies/Adverse Reactions: Allergies Allergy/AdvReac Type Severity Reaction Status Date / Time No Known Drug Allergies Allergy Verified 02/15/17 09:20 - LABS Result Diagrams: 03/19/23 05:11"
--- NOTE | 2023-03-20 10:42 | Discharge Plan ---
Discharge Plan Problem Reviewed?: Yes Disposition: Home, Self Care Condition: Good Prescriptions: oxyCODONE [Roxicodone] 5 mg PO Q4HR PRN #15 tab PRN Reason: Severe Pain 6 -10 Docusate Sodium 100Mg Capsule [Colace 100Mg Capsule] 200 mg PO BID PRN #60 cap PRN Reason: Constipation Ibuprofen [Motrin] 600 mg PO Q6H PRN #20 tab PRN Reason: Pain 5-7 Diet: Regular Activity Restrictions: Activity as Tolerated (No driving while taking pain medication until he can operate the brakes and emergency.) No Smoking: If you smoke, Please STOP! Call for help.
--- NOTE | 2023-03-20 10:47 | PROVIDER PROGRESS NOTE ---
Subjective - Prog Note Date Prog Note Date: 03/20/23 Prog Note Time: 10:45 - Subjective Subjective: Patient is postoperative day 2 status post repeat section and bilateral tubal ligation for gestational hypertension, breech presentation, history of previous . Patient had history of eclamptic seizure with previous . Patient is doing well this morning. She is ambulating, tolerating regular diet, spontaneously voiding. She denies headache, changes in vision, right upper quadrant pain, shortness of breath. Pain is well controlled. Objective - Vital Signs/Intake & Output Reviewed Vital Signs: Yes Vital Signs: Vital Signs x48h Temp Pulse Pulse Resp BP BP Pulse Ox 03/20/23 08:00 97.7 F 78 16 123/80 99 03/20/23 06:04 124/81 H 03/20/23 04:51 97.7 F 79 18 136/82 H 100 Intake & Output: Intake & Output 03/17/23 03/18/23 03/19/23 03/20/23 23:59 23:59 23:59 23:59 Intake Total 1100 Output Total 430 1075 Balance 670 -1075 - Objective General Appearance: positive: No acute distress Respiratory: positive: Breath sounds nml Cardiovascular: positive: Regular rate & rhythm Abdomen: positive: Non-tender (Appropriately tender. Dressing removed. Incision is closed with sutures and is clean, dry, and intact.) Skin: positive: Color nml Extremities: positive: Non-tender, Pedal edema (Trace) Reflexes: Knee (R): 2+, Knee (L): 2+ - Lab Results Fish Bones: 03/19/23 05:11 Assessment/Plan - Problem List (1) delivery delivered Impression: 1. Gestational hypertension Patient has history of eclamptic seizure in previous . She has not required antihypertensive medication during this . I extensively counseled patient on signs and symptoms of preeclampsia. She has a blood pressure follow-up on Friday and a follow-up exam with Dr. Weber in 1 week.
== END 2023-03-20 14:00 | disposition home or self-care (01) | DRG 785 ==
LOC: FBP 06:31
PROVIDERS: ADMIT Obstetrics & Gynecology; ATTEND Obstetrics & Gynecology Obstetrics
PROC: 0UB70ZZ Excision of Bilateral Fallopian Tubes, Open Approach (ICD-10-PCS; 2023-03-18)
PROC: 10D00Z1 Extraction of Products of Conception, Low, Open Approach (ICD-10-PCS; principal; 2023-03-18 08:30)
DX: O13.4 Gestational [pregnancy-induced] hypertension without significant proteinuria, complicating childbirth (principal); O34.211 Maternal care for low transverse scar from previous cesarean delivery; Z3A.37 37 weeks gestation of pregnancy; Z37.0 Single live birth; Z30.2 Encounter for sterilization; O32.1XX0 Maternal care for breech presentation, not applicable or unspecified; O99.824 Streptococcus B carrier state complicating childbirth; O99.214 Obesity complicating childbirth; E66.01 Morbid (severe) obesity due to excess calories
CPT/HCPCS: 36415; 85025; 85027; 86850; 86900; 86901; A9270; J2274; J7120

== ENCOUNTER 2023-10-24 15:53 | Outpatient (CLI) | payer OTHER ==
--- NOTE | 2023-10-24 17:25 | Ultrasound Report ---
PROCEDURE: Abdomen Limited INDICATIONS: ABD MASS TECHNIQUE: Real-time focused scanning was performed of the abdomen, with image documentation. COMPARISONS: OB ultrasound 03/05/2023 FINDINGS: Focal area of concern along the anterior abdomen demonstrates a fat-containing supraumbilical hernia. Wall defect measures 3.5 cm. There is incompletely reducibility. IMPRESSION: Incompletely reducible supraumbilical fat-containing hernia. Reviewed by: Amaris Brower MD on 10/24/2023 5:24 PM PDT Approved by: Amaris Brower MD on 10/24/2023 5:24 PM PDT Station ID: [id number]
== END 2023-10-24 15:54 | disposition home or self-care (01) ==
LOC: DI 15:53
PROVIDERS: ATTEND Nurse Practitioner Family
DX: K46.9 Unspecified abdominal hernia without obstruction or gangrene (principal)

== ENCOUNTER 2024-01-08 11:47 | Observation (INO) | payer OTHER ==
[~2024-01-08 11:47] MED LIST changes: -LACTATED RINGERS 1,000 ML IV SCH; -ceFAZolin (2G) 2 GM in SODIUM CHLORIDE 0.9% MINIBAG 100 ML IV ONE; -ceFAZolin 2 GM VIAL IVP ONE; +ceFAZolin 2 GM VIAL ONE
[2024-01-08] MEDS: LACTATED RINGERS 1,000 ML IV ONE ×2 (11:49→15:53)
[2024-01-08 12:12] LABS: HCG UR QUAL NEGATIVE
[2024-01-08] MEDS ORDERED: PROPOFOL 200 MG/20 ML VIAL IVP ONE ×2 (12:37→14:03)
[2024-01-08] MEDS ORDERED: fentaNYL 100 MCG/2 ML VIAL ONE ×2 (12:37→14:15)
[2024-01-08] MEDS ORDERED: MIDAZOLAM 2 MG/2 ML VIAL ONE (12:37)
[2024-01-08] MEDS ORDERED: ATROPINE ABBOJECT 1 MG/10 ML SYRINGE IVP PRN (12:57)
[2024-01-08] MEDS ORDERED: MORPHINE 2 MG/ML CARPUJECT IVP PRN (12:57)
[2024-01-08] MEDS ORDERED: fentaNYL 100 MCG/2 ML VIAL IVP PRN (12:57)
[2024-01-08] MEDS ORDERED: HYDROmorphone 0.5 MG/0.5 ML SYRINGE IVP PRN ×2 (12:57→16:02)
[2024-01-08] MEDS ORDERED: NALOXONE 0.4 MG/ML VIAL IVP PRN (12:57)
[2024-01-08] MEDS ORDERED: ONDANSETRON 4 MG/2 ML VIAL IVP PRN (12:57)
[2024-01-08] MEDS ORDERED: SCOPOLAMINE PATCH TOP ONE (12:59)
[2024-01-08] MEDS ORDERED: LACTATED RINGERS 1,000 ML IV SCH (13:00)
[2024-01-08] MEDS: SCOPOLAMINE PATCH TOP SCH (13:01)
--- NOTE | 2024-01-08 13:01 | ANESTHESIA ---
Pre-Anesthesia VS, & Labs - Diagnosis ventral hernia - Procedure laparoscopic ventral hernia repair with mesh Vital Signs: Temp Pulse Resp BP Pulse Ox O2 Flow Rate 36.0 C L 76 16 133/92 H 95 0 01/08/24 12:08 01/08/24 12:08 01/08/24 12:08 01/08/24 12:08 01/08/24 12:08 01/08/24 12:08 Height: 5 ft 1 in Weight (kg): 119 kg Body Mass Index: 49.6 BMI Classification: Morbidly Obese - NPO >8 hours - Is Patient ?: No Home Medications and Allergies Home Medications: Ambulatory Orders Acetaminophen [Tylenol] 650 mg PO Q6H PRN 01/02/24 Active Medications Atropine Sulfate (Atropine Abboject 1 Mg/10 Ml Syringe) 0.5 mg IVP Q5M PRN PRN Reason: Bradycardia Stop: 01/09/24 12:57 Fentanyl (Fentanyl 100 Mcg/2 Ml Vial) 25 - 50 mcg IVP Q5M PRN PRN Reason: BREAKTHROUGH PAIN (2nd Choice) Stop: 01/09/24 12:57 Hydromorphone HCl (Hydromorphone 0.5 Mg/0.5 Ml Syringe) 0.2 - 0.6 mg IVP Q5M PRN PRN Reason: PAIN (First Choice) Stop: 01/09/24 12:57 Lactated Ringer's (Lr) 1,000 mls @ 100 mls/hr IV .Q10H LARRY Stop: 01/08/24 22:59 Morphine Sulfate (Morphine 2 Mg/Ml Carpuject) 2 - 4 mg IVP Q5M PRN PRN Reason: PAIN (3rd Choice) Stop: 01/09/24 12:57 Naloxone HCl (Naloxone 0.4 Mg/Ml Vial) 0.1 mg IVP Q2M PRN PRN Reason: RESP RATE <8 Stop: 01/09/24 12:57 Ondansetron HCl (Ondansetron 4 Mg/2 Ml Vial) 4 mg IVP ONCE PRN PRN Reason: N/V (First Choice) Stop: 01/09/24 12:57 Scopolamine HBr (Scopolamine Patch) 1 patch TOP Q3D LARRY Acetaminophen [Tylenol] 650 mg PO Q6H PRN 01/02/24 Allergies/Adverse Reactions: Allergies Allergy/AdvReac Type Severity Reaction Status Date / Time No Known Drug Allergies Allergy Verified 02/15/17 09:20 Anes History & Medical History - Anesthetic History Anesthesia Complications: reports: Post-Operative Nausea/Vomiting (with c/s. Has motion sickness) Family history of Anesthesia Complications: Denies Family history of Malignant Hyperthermia: Denies - Medical History Cardiovascular: reports: None Pulmonary: reports: Sleep apnea (snores every night, has had witnessed apnea) Gastrointestinal: reports: GERD Urinary: reports: None Neuro: reports: None Musculoskeletal: reports: None Endocrine/Autoimmune: reports: None Blood Disorders: reports: None Skin: reports: Eczema Smoking Status: Never smoker Psychosocial: reports: No issues indicated History of Cancer?: No Other Past Medical History: Eclamptic seizure - Surgical History Gynecologic: reports: section, Tubal ligation Exam General: Alert, Oriented x3, Cooperative Dental: WNL Mouth Openin Fingerbreadth Neck Mobility: Normal Mallampati classification: III Thyromental Distance: 4-6 cm Mental/Cognitive Status: Alert/Oriented X3, Normal for patient Plan Anesthesia Type: General Consent for Procedure(s) Verified and Reviewed: Yes Code Status: Attempt Resuscitation ASA classification: 3-Severe systemic disease Is this case an emergency?: No
[2024-01-08] MEDS ORDERED: ONDANSETRON 4 MG/2 ML VIAL ONE (13:05)
[2024-01-08] MEDS ORDERED: DEXAMETHASONE 4 MG/ML VIAL ONE (13:05)
[2024-01-08] MEDS ORDERED: ROCURONIUM 50 MG/5 ML VIAL ONE (13:05)
[2024-01-08] MEDS ORDERED: BUPIVACAINE 0.25% PF 30 ML VIAL ONE (13:09)
[2024-01-08] MEDS ORDERED: LIDOCAINE-PF 2% 10 ML AMP SUBQ ONE (13:16)
[2024-01-08] MEDS: BUPIVACAINE 0.25% PF 30 ML VIAL SUBQ ONE ×2 (14:25)
[2024-01-08] MEDS ORDERED: SUGAMMADEX 200 MG/2 ML VIAL IVP ONE (15:17)
[2024-01-08] MEDS ORDERED: ACETAMINOPHEN 1,000 MG/100 ML 1,000 MG/100 ML BAG IV ONE (15:18)
[2024-01-08] MEDS ORDERED: KETOROLAC 30 MG/ML VIAL ONE (15:20)
[2024-01-08] MEDS ORDERED: HYDROmorphone 1 MG/ML CARPUJECT ONE (15:28)
[2024-01-08] MEDS ORDERED: oxyCODONE 5 MG TABLET PO PRN (16:02)
[2024-01-08] MEDS ORDERED: ONDANSETRON ODT 4 MG TABLET TL PRN (16:02)
[2024-01-08] MEDS ORDERED: SODIUM CHLORIDE FLUSH 0.9% 10 ML SYRINGE IVP PRN (16:02)
--- NOTE | 2024-01-08 16:12 | OPERATIVE REPORT ---
Operative Report - General Procedure Date: 01/08/24 Planned Procedure: lap ventral hernia repair with mesh Pre-Op Diagnosis: symptomatic ventral hernia and very large diastasis Procedure Performed: lap ventral hernia repair with mesh Post Op Diagnosis: 6 x 6 cm hernia and 14 x 16 cm bulge with diastasis - Procedure Note Primary Surgeon: jeevan melgar Anesthesia Technique: General ET tube, Local Estimated Blood Loss (mL): 2 Drain/Tube Type: Other (none) Indications: rapidly progressing hernia in size and pain Findings: 8 x 10 in ventralight mesh Complications: none - Other Other Information/Narrative: The patient was properly identified brought to the operating room and placed in supine position. Sequential compression devices were placed. General endotracheal anesthesia was induced. Augustin catheter was placed. She was prepped and draped in a sterile fashion and given preoperative antibiotics. Local anesthetic was given to incision areas. A lateral left upper quadrant 2 and half centimeter incision was made. Dissection proceeded down to the fascia. The fascia was incised lifted upwards and abdomen entered with a Veress needle. CO2 was insufflated to a pressure of 15. An 11 mm trocar with 30 degree scope was placed under vision. There was no evidence of injury from Veress needle or trocar placement. Under direct vision 5 mm trocars were placed in the left lower quadrant to the right lower quadrant and the right upper quadrant. She had an approximately 6 x 6 cm ventral hernia and a very large diastases. Diastases bulge measured approximately 14 x 16 cm or more. 8 x 10 inch ventral light mesh was placed intra-abdominal. It was secured to the abdominal wall with 6 interrupted 0 Tycron sutures. The mesh lay in good position without tension. The mesh was further secured with approximately 35 capture tacks. Hemostasis was assured. There were no apparent complications. Fascia at the larger trocar site was closed with a [id number] 0 Vicryl. Trocars were removed under direct vision and CO2 evacuated. Again hemostasis assured. Skin was closed with buried interrupted 4-0 Monocryl or running 4-0 Monocryl subcuticular and/or Steri-Strips. Dressings were applied. Tolerated the procedure very well was awakened and brought to recovery in good condition.
[2024-01-08] MEDS ORDERED: PROCHLORPERAZINE 10 MG/2 ML VIAL ONE (16:19)
[2024-01-08] MEDS: PROCHLORPERAZINE 10 MG/2 ML VIAL IVP PRN (16:21)
[2024-01-08] MEDS: SODIUM CHLORIDE FLUSH 0.9% 10 ML SYRINGE IVP SCH (17:44)
[2024-01-08] MEDS: KETOROLAC 15 MG/ML VIAL IVP SCH (17:47)
[2024-01-08] MEDS: D5.45NS W/20 MEQ KCL 1,000 ML IV SCH (17:48)
--- NOTE | 2024-01-08 19:14 | ANESTHESIA POST OP EVALUATION ---
Anesthesia Post Eval - Post Anesthesia Eval Vitals: Last Vital Signs Temp 36.1 C L 01/08/24 18:57 Pulse 74 01/08/24 18:57 Resp 16 01/08/24 18:57 BP 128/67 01/08/24 18:57 Pulse Ox 98 01/08/24 18:57 O2 Flow Rate 2 01/08/24 18:57 CV Function Including HR & BP: Stable Pain Control: Satisfactory Nausea & Vomiting: Negative Mental Status: Baseline Respiratory Status: Airway Patent Hydration Status: Satisfactory Anesthesia Complications: None
[2024-01-08] MEDS: FAMOTIDINE 20 MG/2 ML VIAL IVP SCH (22:54)
[2024-01-09] MEDS: ACETAMINOPHEN 325 MG TABLET PO PRN (05:06)
[2024-01-09] MEDS: HEPARIN 5,000 UNIT/ML VIAL SUBQ SCH (08:25)
--- NOTE | 2024-01-09 08:43 | PHARMACY PROGRESS NOTE ---
- Best Possible Medication History Admit Date and Time: 01/08/24 1602 Processed by: Nursing Medications reviewed in ED?: No Medication History completed: Yes Patient Interview: Completed As the person ultimately responsible for medication therapy, providers are able to order a medication from an existing home medication list in [facility] via the "Reconcile Routine" prior to Confirmation of that medication by sales support specialist. Such practice is discouraged except when the physician, in their clinical judgment, deems that a medical need exists for a medication without regard to previous use.
--- NOTE | 2024-01-09 10:35 | PROVIDER PROGRESS NOTE ---
Subjective - Prog Note Date Prog Note Date: 01/09/24 - Subjective Subjective: appears well. very uncomfortable to move Objective - Vital Signs/Intake & Output Vital Signs: Vital Signs x48h Temp Pulse Resp BP Pulse Ox 01/09/24 08:00 36.5 C 79 18 118/75 98 01/09/24 04:00 36.6 C 82 18 114/77 97 Intake & Output: Intake & Output 01/06/24 01/07/24 01/08/24 01/09/24 23:59 23:59 23:59 23:59 Intake Total 450 986.667 Output Total 577 350 Balance -127 636.667 - Objective General Appearance: positive: No acute distress, Alert Neck: positive: No JVD, Trachea midline Respiratory: positive: No respiratory distress Abdomen: positive: No distention Neurologic/Psychiatric: positive: Oriented x3 - Lab Results Other Labs: Lab Results x24hrs 01/08/24 Range/Units 11:55 Urine HCG, Qual NEGATIVE Assessment/Plan - Problem List (1) Ventral hernia Impression: laparoscopic repair very large ventral hernia yesterday. often after this size of a repair people cannot get out of bed without assist for a couple days and ileus common. home when able to ambulate safely and tolerating diet without nausea. she had significant nausea last pm. tian out when she is able to get out of bed without considerable pain.
[2024-01-09] MEDS: D5.45NS W/20 MEQ KCL 1,000 ML IV SCH (13:19)
--- NOTE | 2024-01-10 07:19 | PROVIDER PROGRESS NOTE ---
Progress Note General Surgery Post-op Note POD # 3 Laparoscopic ventral hernia repair with mesh implant S: Feels better today. Tolerating a general diet (50%) without nausea or vomiting. Up to chair a couple times yesterday. Passing flatus but no BM yet. Abdominal pain under good control with oral Tylenol. No use of narcotics. O: VSS afeb; Lungs clear; Heart NSR; Abdomen - soft, non-tender; no distension. Port and suture access sites clean and dry; + BS A: Progressing well P: Advance diet; ambulate in haider; Possibly home this afternoon or tomorrow depending on her progress today. Neel Garland MD, FACS General Surgery Service
[2024-01-10] MEDS: IBUPROFEN 600 MG TABLET PO PRN (08:25)
--- NOTE | 2024-01-10 12:39 | DISCHARGE SUMMARY ---
"Discharge Summary Admit Date: 01/08/24 Discharge Date: 01/10/24 Discharging Provider: Dada Code Status: Attempt Resuscitation Condition at Discharge: Good Discharge Disposition: 01 Home, Self Care - DIAGNOSES Admission Diagnoses: Ventral hernia Discharge Diagnoses with Status of Each Condition: Ventral hernia - s/p laparoscopic ventral mesh hernia repair - HPI History of Present Illness: 33 female with symptomatic ventral hernia - CONSULTS | PROCEDURES Procedures: 01/08/2024 - laparoscopic ventral mesh hernia repair - HOSPITAL COURSE Hospital Course: Uncomplicated post-op course. At the time of discharge, she was ambulatory, tolerating a diet, her pain was under control with non-narcotc oral medication, she was passing flatus, and her port and suture sites were healing without bleeding or infection. - ALLERGIES Allergies/Adverse Reactions: Allergies Allergy/AdvReac Type Severity Reaction Status Date / Time No Known Drug Allergies Allergy Verified 02/15/17 09:20 - MEDICATIONS Home Medications: Ambulatory Orders Medication Instructions Recorded Confirmed Acetaminophen [Tylenol] 650 mg PO Q6H PRN 01/02/24 01/02/24 Oxycodone HCl/Acetaminophen 1 tab PO Q6HR PRN #35 tablet 01/09/24 [Percocet 5-325 mg Tablet] - PHYSICAL EXAM AT DISCHARGE General Appearance: positive: No acute distress Eyes Bilateral: positive: Normal inspection, PERRL ENT: positive: ENT inspection nml Neck: positive: Nml inspection Respiratory: positive: Chest non-tender, No respiratory distress, Breath sounds nml Cardiovascular: positive: Regular rate & rhythm Peripheral Pulses: positive: 2+ Abdomen: positive: Non-tender, Other (Port sites and suture access sites clean and dry.) Skin: positive: Color nml Extremities: positive: Full ROM - QUALITY (Female Hip Fx Only) Was patient sent home on osteoporosis medication?: No - FOLLOW UP Follow Up: Follow-up Dr Moreau in 7-10 days. The clinic will arrange for a post-op visit date and contact her this week. - TIME SPENT Time Spent in Discharge (Minutes): 30"
--- NOTE | 2024-01-10 12:46 | Discharge Plan ---
Discharge Plan Problem Reviewed?: Yes Disposition: Home, Self Care Condition: Good Prescriptions: Oxycodone HCl/Acetaminophen [Percocet 5-325 mg Tablet] 1 tab PO Q6HR PRN #35 tablet PRN Reason: Pain 5-7 Ibuprofen [Motrin] 600 mg PO TIDWM PRN #60 tab PRN Reason: Abdominal Pain Diet: Regular Activity Restrictions: Activity as Tolerated Shower Restrictions: No (May remove bandaids and shower starting tomorrow) Driving Restrictions: No Instruction Topics: Hernia Laparoscopic Repair RUSSELL Additional Instructions or Follow Up instructions: Diet: As tolerated Activity: As tolerated. Be active but if it hurts to do, don't do it. Medication: All usual pre-op meds and Tylenol/Ibuprofen for abdominal discomfort Follow-up: [facility]. If you do not already have a scheduled appointment, they will contact you on Friday to create one. No Smoking: If you smoke, Please STOP! Call for help.
[2024-01-10 13:12] VITALS: BP 130/85; O2SAT 98
== END 2024-01-10 13:41 | disposition home or self-care (01) ==
LOC: SDS 11:47 → MS2 16:02
PROVIDERS: ADMIT Surgery; ATTEND Surgery
PROC: 0WUF4JZ Supplement Abdominal Wall with Synthetic Substitute, Percutaneous Endoscopic Approach (ICD-10-PCS; principal; 2024-01-08 13:30)
DX: K43.9 Ventral hernia without obstruction or gangrene (principal); M62.08 Separation of muscle (nontraumatic), other site; E66.01 Morbid (severe) obesity due to excess calories; Z68.42 Body mass index [BMI] 45.0-49.9, adult; G47.30 Sleep apnea, unspecified
CPT/HCPCS: 49593; 81025; 96374; 96375; 96376; A9270; C1781; G0378; J0131; J1170; J3490; J7120